=== PATIENT | female | born 1945 | race African-American/Black ===

== ENCOUNTER 2023-12-26 15:34 | Emergency (ER) | payer OTHER, BC ==
--- OUTSIDE RECORDS SUMMARY | 2023-12-26 15:37 | XMS REPORT | Continuity of Care Document ---
Author Name Unknown Address [address] [facility] [address] [place] [address] [facility] thconnect Address [address] [facility] [address] [place] [address] Care Team Providers [facility] Department Supervisor Name Role Phone MONICABahmanNAVA Primary Care Physician Unavailab Ankur Mariano Attending Clinician Unavailable Chelsey Bose MD Attending Clinician CHELSEY BOSE Attending Clinician UnavailTAI Lowry Attending Clinician Unavailable Tai Schaefer MD Attending Clinician [phone] Ankur De La Cruz Admitting Clinician Unavailable TAI SCHAEFER Admitting Clinician Unavailable Payers Payer Name Policy Type Policy Number Effective Date Expirati on Date Source [facility] 6 [id number] [facility] 6 [id number] [facility] MEDICARE NOVITAS [id number] 2002 00:00:00 [facility] [id number] 2002 00:00:00 [facility] Problems Condition Name Condition Details Condition Category Status Onset Date Resolution Date Last Treatment Date Treating Clinician Comments Source Type II or unspecifie d type diabetes mellitus with neurologic al manifestat ions, not stated as uncontroll ed(250.60) 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 ICD10 Diagnosis Term [employer] [facility] HLD (hyperlipi demia) HLD (hyperlipi demia) Disease Active 07-01 00:00: 00 Overview: Formattin g of this note might be different from the original. ICD10 Diagnosis Term [employer] [facility] [id number] Stage 3 chronic kidney disease, unspecifie d whether stage 3a or 3b CKD Problem [facility] [id number] Primary osteoarthr itis of right knee Problem [facility] [id number] Essential hypertensi on Problem [facility] [id number] Primary insomnia Problem [facility] [id number] Non-season al allergic rhinitis, unspecifie d trigger Problem [facility] [id number] Obesity (BMI 30-39.9) Problem [facility] [id number] Mixed hyperlipid emia Problem [facility] [id number] Morbid (severe) obesity due to excess calories Problem [facility] [id number] Type 2 diabetes mellitus with hyperglyce carol, without long-term current use of insulin Problem [facility] [id number] Iron deficiency anemia, unspecifie d iron deficiency anemia type Problem [facility] [id number] Neuropathy of right lower extremity Problem [facility] [id number] Diabetic polyneurop athy associated with type 2 diabetes mellitus Problem [facility] [id number] GERD without esophagiti s Problem [facility] Allergies, Adverse Reactions, Alerts Allergy Name Allergy Type Status Severity Reaction(s) Onset Date Inactive Date Treating Clinician Comments Source Penicill ins Propensi ty to adverse reaction s Active Hives 07-01 00:00: 00 bruises [facility] PENICILL INS Drug Class Active Hives 07-01 00:00: [address] [facility] albutero l albutero l Active Unknown [facility] [id number] Drug allergy Active Unknown [facility] Social History Social Habit Start Date Stop Date Quantity Comments Source History of Tobacco Use [facility] Sex Assigned At [facility] Exposure to SARS-CoV-2 (event) 2021-08-31 00:00:00 2021-09-10 08:11:00 Not sure [facility] Alcohol intake 2021-09-10 00:00:00 2021-09-10 00:00:00 Current non-drinker of alcohol (finding) [facility] Tobacco use and exposure 2014-10-22 00:00:00 2014-10-22 00:00:00 Smokeless tobacco non-user [facility] Smoking Status Start Date Stop Date Source Never Smoker [facility] Medications Ordered Medication Name Filled Medication Name Start Date Stop Date Current Medication? Ordering Clinician Indication Dosage Frequency Signature (SIG) Comments Components Source Ozempic (2 MG/DOSE) 8 MG/3ML Ozempic (2 MG/DOSE) 8 MG/3ML 9-04 00:00: 00 No Ozempic (2 MG/DOSE) 8 MG/3ML Sushila Contour Test Strip Strip Sushila Contour Test Strip Strip 5-06 00:00: 00 No Sushila Contour Test Strip Strip BUPivacaine HCl BUPivacaine HCl 2022-02 2-19 00:00: 00 No 4mL [facility] Methocarbam ol 500 MG Methocarbam ol 500 MG 7-11 00:00: 00 No 1{table t} TID Methocarba mol 500 MG Bupivicaine Oil Trough Bupivicaine Oil Trough 03-15 00:00: 00 No 2.5mg [facility] Kenalog (Triamcinol one) Kenalog (Triamcinol one) 03-15 00:00: 00 No 40mg [facility] diclofenac 75 mg EC tablet 09-13 00:00: 00 Yes 75mg Take 1 tablet by mouth in the morning and 1 tablet in the evening. Take with meals. [facility] diclofenac 75 mg EC tablet 09-10 00:00: 00 Yes [id number] 9100 75mg Take 1 tablet by mouth in the morning and 1 tablet in the evening. Take with meals. [facility] ibuprofen 600 mg tablet 09-05 00:00: 00 Yes [id number] 9100 600mg Take 1 tablet by mouth every 6 (six) hours as needed for Pain (scale 4-6). [facility] HYDROcodone -acetaminop hen (NORCO) 7.5-325 mg per tablet 09-05 00:00: 00 09-13 04:59 :00 No [id number] 1{tbl} Take 1 tablet by mouth every 8 (eight) hours as needed for Pain for up to 7 days. Indication s: acute pain [facility] diclofenac (VOLTAREN) 75 mg EC tablet 07-27 00:00: 00 Yes TAKE 1 TABLET BY MOUTH 2 (TWO) TIMES DAILY WITH MEALS FOR 30 DAYS. [facility]y [facility] CARVEDILOL 6.25 MG ORAL TAB 06-22 16:08: 07 Yes 2 twice daily [facility] ASPIRIN 81 MG ORAL TAB 06-22 16:08: 07 Yes 1 daily [facility] CENTRUM ORAL 06-22 16:08: 07 Yes 1 daily [facility] carvedilol (COREG) 25 mg tablet 06-22 16:08: 07 Yes 25mg Take 25 mg by mouth 2 (two) times daily. [facility] ALBIGLUTIDE (TANZEUM SC) 06-22 16:08: 07 Yes inject under the skin. [facility] SIMVASTATIN 80 MG ORAL TAB 06-22 16:06: 20 Yes 1 daily [facility] KLOR-CON 10 10 MEQ ORAL TBSR 06-22 16:06: 20 Yes 1 daily [facility] XOPENEX HFA INHALE 06-22 16:06: 20 Yes 2 puffs daily PRN [facility] NEURONTIN 800 MG ORAL TAB 06-22 16:06: 20 Yes 1 Daily [facility] metFORMIN (GLUCOPHAGE ) 1,000 mg tablet 06-22 16:06: 20 Yes 1000mg Take 1,000 mg by mouth 2 (two) times daily. [facility] losartan (COZAAR) 100 mg tablet 06-22 16:06: 20 Yes 100mg Take 100 mg by mouth daily. [facility] ferrous sulfate (IRON, FERROUS SULFATE,) 325 mg (65 mg iron) tablet 06-22 16:06: 20 Yes 325mg Take 325 mg by mouth daily. [facility] glipiZIDE (GLUCOTROL) 5 mg tablet 05-03 00:00: 00 Yes 5mg Take 5 mg by mouth daily. [facility] DIOVAN 320 MG ORAL TAB 11-13 09:23: 44 Yes 1 daily [facility] blood sugar diagnostic (ONE TOUCH ULTRA TEST) strip 08-07 00:00: 00 Yes before meals. [facility] BD INSULIN PEN NEEDLE UF MINI 31 X 3/16 INCH MISC NDLE 11-04 00:00: 00 Yes use twice daily with byetta pen [facility] Furosemide 20 MG Furosemide 20 MG No 1{table t} QD Furosemide 20 MG Ozempic (1 MG/DOSE) 4 MG/3ML Ozempic (1 MG/DOSE) 4 MG/3ML No Ozempic (1 MG/DOSE) 4 MG/3ML Simvastatin 40 MG Simvastatin 40 MG No 1{table t_in_th e_eveni ng} QD Simvastati n 40 MG Cetirizine HCl 10 MG Cetirizine HCl 10 MG No 1{table t} QD Cetirizine HCl 10 MG Carvedilol 25 MG Carvedilol 25 MG No 1{table t_with_ food} BID Carvedilol 25 MG traZODone HCl 100 MG traZODone HCl 100 MG No 1{table t_at_be dtime_a s_neede d} QD traZODone HCl 100 MG glipiZIDE 10 MG glipiZIDE 10 MG No glipiZIDE 10 MG Famotidine 20 MG Famotidine 20 MG No 1{table t_at_be dtime_a s_neede d} QD Famotidine 20 MG Losartan Potassium 100 MG Losartan Potassium 100 MG No 1{table t} QD Losartan Potassium 100 MG Gabapentin 300 MG Gabapentin 300 MG No 1{capsu le} TID Gabapentin 300 MG Pantoprazol e Sodium 40 MG Pantoprazol e Sodium 40 MG No 1{table t} QD Pantoprazo le Sodium 40 MG Ventolin HFA 108 (90 Base) MCG/ACT Ventolin HFA 108 (90 Base) MCG/ACT No 1{puff_ as_need ed} 6xD Ventolin HFA 108 (90 Base) MCG/ACT amLODIPine Besylate 2.5 MG amLODIPine Besylate 2.5 MG No 1{table t} QD amLODIPine Besylate 2.5 MG Potassium 99 MG Potassium 99 MG No 1{table t} QD Potassium 99 MG Aspirin Adult Low Strength 81 MG Aspirin Adult Low Strength 81 MG No 1{table t} QD Aspirin Adult Low Strength 81 MG Naproxen 500 MG Naproxen 500 MG No BID Naproxen 500 MG Iron (Ferrous Sulfate) 325 (65 Fe) MG Iron (Ferrous Sulfate) 325 (65 Fe) MG No 1{table t} Iron (Ferrous Sulfate) 325 (65 Fe) MG Immunizations Ordered Immunization Name Filled Immunization Name Date Status Comments Source Pneumovax (PPSV23) Pneumovax (PPSV23) 2021-09-29 10:40:00 Completed [facility] Pneumovax (PPSV23) Pneumovax (PPSV23) 2021-09-29 10:40:00 Completed [facility] Pneumovax (PPSV23) Pneumovax (PPSV23) 2021-09-29 10:40:00 Completed [facility] Pneumovax (PPSV23) Pneumovax (PPSV23) 2021-09-29 10:40:00 Completed [facility] Pneumovax (PPSV23) Pneumovax (PPSV23) 2021-09-29 10:40:00 Completed [facility] Pneumovax (PPSV23) Pneumovax (PPSV23) 2021-09-29 10:40:00 Completed [facility] FluAD FluAD 2020-11-26 16:17:00 Completed [facility] FluAD FluAD 2020-11-26 16:17:00 Completed [facility] FluAD FluAD 2020-11-26 16:17:00 Completed [facility] FluAD FluAD 2020-11-26 16:17:00 Completed [facility] FluAD FluAD 2020-11-26 16:17:00 Completed [facility] FluAD FluAD 2020-11-26 16:17:00 Completed [facility] FluAD FluAD 2020-11-26 16:17:00 Completed [facility] FluAD FluAD Unknown Completed [facility] Pneumovax (PPSV23) Pneumovax (PPSV23) Unknown Completed [facility] FluAD FluAD Unknown Completed [facility] Pneumovax (PPSV23) Pneumovax (PPSV23) Unknown Completed [facility] FluAD FluAD Unknown Completed [facility] Pneumovax (PPSV23) Pneumovax (PPSV23) Unknown Completed [facility] FluAD FluAD Unknown Completed [facility] Pneumovax (PPSV23) Pneumovax (PPSV23) Unknown Completed [facility] FluAD FluAD Unknown Completed [facility] Pneumovax (PPSV23) Pneumovax (PPSV23) Unknown Completed [facility] FluAD FluAD Unknown Completed [facility] Pneumovax (PPSV23) Pneumovax (PPSV23) Unknown Completed [facility] FluAD FluAD Unknown Completed [facility] Pneumovax (PPSV23) Pneumovax (PPSV23) Unknown Completed [facility] Shingrix Shingrix Unknown Completed [facility] Flu Vaccine for Medicare Flu Vaccine for Medicare Unknown Completed [facility] FluAD FluAD Unknown Completed [facility] Pneumovax (PPSV23) Pneumovax (PPSV23) Unknown Completed [facility] FluAD FluAD Unknown Completed [facility] Pneumovax (PPSV23) Pneumovax (PPSV23) Unknown Completed [facility] FluAD FluAD Unknown Completed [facility] Pneumovax (PPSV23) Pneumovax (PPSV23) Unknown Completed [facility] FluAD FluAD Unknown Completed [facility] Pneumovax (PPSV23) Pneumovax (PPSV23) Unknown Completed [facility] FluAD FluAD Unknown Completed [facility] Pneumovax (PPSV23) Pneumovax (PPSV23) Unknown Completed [facility] FluAD FluAD Unknown Completed [facility] Pneumovax (PPSV23) Pneumovax (PPSV23) Unknown Completed [facility] FluAD FluAD Unknown Completed [facility] Pneumovax (PPSV23) Pneumovax (PPSV23) Unknown Completed [facility] FluAD FluAD Unknown Completed [facility] Pneumovax (PPSV23) Pneumovax (PPSV23) Unknown Completed [facility] FluAD FluAD Unknown Completed [facility] Pneumovax (PPSV23) Pneumovax (PPSV23) Unknown Completed [facility] FluAD FluAD Unknown Completed [facility] Pneumovax (PPSV23) Pneumovax (PPSV23) Unknown Completed [facility] FluAD FluAD Unknown Completed [facility] Pneumovax (PPSV23) Pneumovax (PPSV23) Unknown Completed [facility] FluAD FluAD Unknown Completed [facility] Pneumovax (PPSV23) Pneumovax (PPSV23) Unknown Completed [facility] FluAD FluAD Unknown Completed [facility] Pneumovax (PPSV23) Pneumovax (PPSV23) Unknown Completed [facility] Vital Signs Vital Name Observation Time Observation Value Comments S ource height 2023-11-01 15:20:00 64 [in_i] Commo n [facility] temperature 2023-11-01 15:20:00 95.6 [degF] Com mon [facility] oximetry 2023-11-01 15:20:00 97 % Commo n [facility] blood pressure systolic 2023-11-01 15:20:00 122 mm[Hg] [facility] blood pressure diastolic 2023-11-01 15:20:00 68 mm[Hg] [facility] height 2023-11-01 15:20:00 64 [in_i] Commo n [facility] bmi 2023-11-01 15:20:00 35.36 kg/m2 Comm on [facility] oximetry 2023-11-01 15:20:00 97 % [facility] n [facility] blood pressure systolic 2023-11-01 15:20:00 122 mm[Hg] [facility] blood pressure diastolic 2023-11-01 15:20:00 68 mm[Hg] [facility] height 2023-07-31 15:20:00 64 [in_i] Commo n [facility] weight 2023-07-31 15:20:00 206.4 [lb_av] Co on [facility] temperature 2023-07-31 15:20:00 97.6 [degF] Com [facility] bmi 2023-07-31 15:20:00 35.42 kg/m2 Comm on [facility] oximetry 2023-07-31 15:20:00 98 % Commo n [facility] blood pressure systolic 2023-07-31 15:20:00 128 mm[Hg] [facility] blood pressure diastolic 2023-07-31 15:20:00 70 mm[Hg] Common [facility] height 2023-05-10 09:10:00 64 [in_i] Commo n [facility] weight 2023-05-10 09:10:00 206.0 [lb_av] Co on [facility] temperature 2023-05-10 09:10:00 97.8 [degF] Com [facility] bmi 2023-05-10 09:10:00 35.36 kg/m2 Comm on [facility] oximetry 2023-05-10 09:10:00 99 % Commo n [facility] respiratory rate 2023-05-10 09:10:00 18 /min Common [facility] blood pressure systolic 2023-05-10 09:10:00 136 mm[Hg] [facility] blood pressure diastolic 2023-05-10 09:10:00 71 mm[Hg] Common [facility] height 2023-02-14 10:15:00 64 [in_i] Commo n [facility] weight 2023-02-14 10:15:00 210 [lb_av] Comm on [facility] temperature 2023-02-14 10:15:00 97.9 [degF] Com [facility] bmi 2023-02-14 10:15:00 36.04 kg/m2 Comm on [facility] blood pressure systolic 2023-02-14 10:15:00 128 mm[Hg] Common [facility] blood pressure diastolic 2023-02-14 10:15:00 84 mm[Hg] Common [facility] height 2022-12-28 15:10:00 64 [in_i] Commo n [facility] weight 2022-12-28 15:10:00 205 [lb_av] Comm on [facility] bmi 2022-12-28 15:10:00 35.18 kg/m2 Comm on [facility] blood pressure systolic 2022-12-28 15:10:00 132 mm[Hg] Common [facility] blood pressure diastolic 2022-12-28 15:10:00 78 mm[Hg] Common [facility] height 2022-09-28 14:20:00 64 [in_i] Commo n [facility] weight 2022-09-28 14:20:00 219.0 [lb_av] Co mmon [facility] temperature 2022-09-28 14:20:00 97.6 [degF] Com mon [facility] bmi 2022-09-28 14:20:00 37.59 kg/m2 Comm on [facility] oximetry 2022-09-28 14:20:00 98 % Commo n [facility] respiratory rate 2022-09-28 14:20:00 18 /min Common [facility] blood pressure systolic 2022-09-28 14:20:00 138 mm[Hg] [facility] blood pressure diastolic 2022-09-28 14:20:00 75 mm[Hg] [facility] height 2022-09-28 14:20:00 64 [in_i] Commo n [facility] weight 2022-09-28 14:20:00 219.0 [lb_av] Co mmon [facility] temperature 2022-09-28 14:20:00 97.6 [degF] Com mon [facility] bmi 2022-09-28 14:20:00 37.59 kg/m2 Comm on [facility] oximetry 2022-09-28 14:20:00 98 % Commo n [facility] respiratory rate 2022-09-28 14:20:00 18 /min Common [facility] blood pressure systolic 2022-09-28 14:20:00 138 mm[Hg] [facility] blood pressure diastolic 2022-09-28 14:20:00 75 mm[Hg] Common [facility] height 2022-09-06 13:45:00 64 [in_i] Commo n [facility] weight 2022-09-06 13:45:00 216 [lb_av] Comm on [facility] temperature 2022-09-06 13:45:00 98.0 [degF] Com [facility] bmi 2022-09-06 13:45:00 37.07 kg/m2 Comm on [facility] blood pressure systolic 2022-09-06 13:45:00 134 mm[Hg] Common [facility] blood pressure diastolic 2022-09-06 13:45:00 86 mm[Hg] [facility] height 2022-07-28 13:30:00 64 [in_i] Commo n [facility] weight 2022-07-28 13:30:00 216.6 [lb_av] Co on [facility] bmi 2022-07-28 13:30:00 37.18 kg/m2 Comm on [facility] blood pressure systolic 2022-07-28 13:30:00 129 mm[Hg] [facility] blood pressure diastolic 2022-07-28 13:30:00 64 mm[Hg] [facility] height 2022-06-07 16:40:00 64 [in_i] Commo n [facility] weight 2022-06-07 16:40:00 214 [lb_av] Comm on [facility] temperature 2022-06-07 16:40:00 98 [degF] Comm on [facility] bmi 2022-06-07 16:40:00 36.73 kg/m2 Comm on [facility] blood pressure systolic 2022-06-07 16:40:00 124 mm[Hg] Common [facility] blood pressure diastolic 2022-06-07 16:40:00 70 mm[Hg] Common [facility] height 2022-03-15 15:00:00 64 [in_i] Commo n [facility] weight 2022-03-15 15:00:00 215 [lb_av] Comm on [facility] temperature 2022-03-15 15:00:00 97.2 [degF] Com [facility] bmi 2022-03-15 15:00:00 36.9 kg/m2 Commo n [facility] blood pressure systolic 2022-03-15 15:00:00 126 mm[Hg] [facility] blood pressure diastolic 2022-03-15 15:00:00 76 mm[Hg] [facility] height 2022-01-31 14:50:00 64 [in_i] Commo n [facility] weight 2022-01-31 14:50:00 219.7 [lb_av] Co mmon [facility] temperature 2022-01-31 14:50:00 97.3 [degF] Com mon [facility] bmi 2022-01-31 14:50:00 37.71 kg/m2 Comm on [facility] oximetry 2022-01-31 14:50:00 98 % Commo n [facility] respiratory rate 2022-01-31 14:50:00 18 /min Common [facility] blood pressure systolic 2022-01-31 14:50:00 136 mm[Hg] [facility] blood pressure diastolic 2022-01-31 14:50:00 62 mm[Hg] Common [facility] height 2021-11-16 10:40:00 64 [in_i] Commo n [facility] weight 2021-11-16 10:40:00 223.8 [lb_av] Co [facility] bmi 2021-11-16 10:40:00 38.41 kg/m2 Comm on [facility] height 2021-09-29 09:50:00 64 [in_i] Commo n [facility] weight 2021-09-29 09:50:00 223.8 [lb_av] Co [facility] temperature 2021-09-29 09:50:00 97.6 [degF] Com [facility] bmi 2021-09-29 09:50:00 38.41 kg/m2 Comm on [facility] oximetry 2021-09-29 09:50:00 99 % Commo n [facility] respiratory rate 2021-09-29 09:50:00 18 /min Common [facility] blood pressure systolic 2021-09-29 09:50:00 138 mm[Hg] [facility] blood pressure diastolic 2021-09-29 09:50:00 74 mm[Hg] Common [facility] height 2021-09-29 10:00:00 64 [in_i] Commo n [facility] weight 2021-09-29 10:00:00 223.8 [lb_av] Co [facility] temperature 2021-09-29 10:00:00 97.6 [degF] Com [facility] bmi 2021-09-29 10:00:00 38.41 kg/m2 Comm on [facility] oximetry 2021-09-29 10:00:00 99 % Commo n [facility] respiratory rate 2021-09-29 10:00:00 18 /min [facility] blood pressure systolic 2021-09-29 10:00:00 138 mm[Hg] [facility] blood pressure diastolic 2021-09-29 10:00:00 74 mm[Hg] [facility] Systolic blood pressure 2021-09-10 13:15:00 136 mm[Hg] [facility] Diastolic blood pressure 2021-09-10 13:15:00 62 mm[Hg] [facility] Heart rate 2021-09-10 13:15:00 81 /min [facility] Body height 2021-09-10 13:15:00 162.6 cm [facility] Body weight 2021-09-10 13:15:00 97.523 kg [facility] BMI 2021-09-10 13:15:00 36.90 kg/m2 [facility] height 2021-05-17 16:20:00 64 [in_i] Commo n [facility] weight 2021-05-17 16:20:00 214.4 [lb_av] Co mmon [facility] temperature 2021-05-17 16:20:00 97.5 [degF] Com mon [facility] bmi 2021-05-17 16:20:00 36.8 kg/m2 Commo n [facility] oximetry 2021-05-17 16:20:00 100 % Commo n [facility] respiratory rate 2021-05-17 16:20:00 18 /min [facility] blood pressure systolic 2021-05-17 16:20:00 136 mm[Hg] [facility] blood pressure diastolic 2021-05-17 16:20:00 72 mm[Hg] [facility] height 2021-02-15 16:30:00 64 [in_i] Commo n [facility] weight 2021-02-15 16:30:00 217.2 [lb_av] Co mmon [facility] temperature 2021-02-15 16:30:00 97.3 [degF] Com mon [facility] bmi 2021-02-15 16:30:00 37.28 kg/m2 Comm on [facility] oximetry 2021-02-15 16:30:00 100 % Commo n [facility] respiratory rate 2021-02-15 16:30:00 18 /min Common [facility] blood pressure systolic 2021-02-15 16:30:00 134 mm[Hg] Common [facility] blood pressure diastolic 2021-02-15 16:30:00 70 mm[Hg] Common [facility] temperature 2020-11-19 15:50:00 98.7 [degF] Com mon [facility] bmi 2020-11-19 15:50:00 38.10 kg/m2 Comm on [facility] blood pressure systolic 2020-11-19 15:50:00 131 mm[Hg] Common [facility] blood pressure diastolic 2020-11-19 15:50:00 75 mm[Hg] Common [facility] height 2020-11-19 15:50:00 64 [in_i] Commo n [facility] weight 2020-11-19 15:50:00 222 [lb_av] Comm on [facility] Encounters Start Date/Time End Date/Time Encounter Type Admission Type Attending Clinicians Care Facility Care Department Encounter ID Source 2023-05-08 14:38[facility]00 [facility] [id number] [facility] 2023-02-14 14:59:00 [facility] [id number] [facility] 2022-09-28 14:17:00 Outpatient De La Cruz, Ankur [facility] [id number] [facility] 2022-09-27 08:21:00 Outpatient De La Cruz, Ankur [facility] [id number] [facility] 2022-06-03 10:37:00 Outpatient De La Cruz, Ankur [facility] [id number] [facility] 2022-03-15 15:32:01 Outpatient De La Cruz, Ankur [facility] [id number] [facility] 2022-02-03 13:51:01 Outpatient De La Cruz, Ankur STLC STLML[facility] [id number] [facility] 2022-01-27 13:41:00 Outpatient De La Cruz, Ankur STLC STL[facility] [id number] [facility] 2021-11-16 10:10:01 Outpatient De La Cruz, Ankur STLC [facility] [id number] [facility] 2021-03-24 14:26:23 Outpatient De La Cruz, Ankur [facility]C [facility] [id number] [facility] 2021-03-24 13:48:35 Outpatient De La Cruz, Ankur STLC STL[facility] [id number] [facility] 2021-03-24 13:43:52 Outpatient De La Cruz, Ankur [facility] ST[facility] [id number] [facility] 2021-03-24 13:16:01 Outpatient De La Cruz, Ankur STLMLC ST[facility] [id number] [facility] 2021-03-24 12:38:02 Outpatient De La Cruz, Ankur [facility]C ST[facility] [id number] [facility] 2023-11-01 00:00:00 2023-11-01 00:00:00 OFFICE VISIT ESTAB PT LEVEL 4 [facility] ST[facility] [id number] [facility] 2023-11-01 00:00:00 2023-11-01 00:00:00 (TEL) STLMLC STL[facility]C [id number] [facility] 2023-11-01 00:00:00 2023-11-01 00:00:00 SUB ANNUAL [facility] STL[facility] STL[facility]C [id number] [facility] 2023-11-01 00:00:00 2023-11-01 00:00:00 (TEL) STLMLC STLMLC [id number] [facility] 2023-09-18 00:00:00 2023-09-18 00:00:00 (TEL) STLMLC STL[facility]C [id number] [facility] 2023-07-31 00:00:00 2023-07-31 00:00:00 OFFICE VISIT ESTAB PT LEVEL 4 [facility]C STL[facility]C [id number] [facility] 2023-07-03 00:00:00 2023-07-03 00:00:00 (TEL) STLMLC STL[facility]C [id number] [facility] 2023-06-30 00:00:00 2023-06-30 00:00:00 (TEL) STLMLC STLMLC [id number] [facility] 2023-05-24 00:00:00 2023-05-24 00:00:00 (TEL) STLMLC STLMLC [id number] [facility] 2023-05-23 00:00:00 2023-05-23 00:00:00 (TEL) STLMLC STLMLC [id number] [facility] 2023-05-10 00:00:00 2023-05-10 00:00:00 OFFICE VISIT ESTAB PT LEVEL 4 [facility]LMLC STL[facility]C [id number] [facility] 2023-02-14 00:00:00 2023-02-14 00:00:00 OFFICE VISIT ESTAB PT LEVEL 4 [facility]LMLC STL[facility]C [id number] [facility] 2023-01-18 00:00:00 2023-01-18 00:00:00 (TEL) STLMLC STLMLC [id number] [facility] 2022-12-30 00:00:00 2022-12-30 00:00:00 (TEL) STLMLC STLMLC [id number] [facility] 2022-12-28 00:00:00 2022-12-28 00:00:00 OFFICE VISIT ESTAB PT LEVEL 4 [facility]C STL[facility]C [id number] [facility] 2022-09-28 00:00:00 2022-09-28 00:00:00 OFFICE VISIT ESTAB PT LEVEL 4 [facility]C STL[facility]C [id number] [facility] 2022-09-28 00:00:00 2022-09-28 00:00:00 SUB ANNUAL [facility] STL[facility]C [id number] [facility] 2022-09-28 00:00:00 2022-09-28 00:00:00 (TEL) STLMLC STLMLC [id number] [facility] 2022-09-06 00:00:00 2022-09-06 00:00:00 (TEL) STLMLC STLMLC [id number] [facility] 2022-09-06 00:00:00 2022-09-06 00:00:00 OFFICE VISIT ESTAB PT LEVEL 4 [facility]LMLC STL[facility]C [id number] [facility] 2022-09-01 00:00:00 2022-09-01 00:00:00 (TEL) STLMLC STLMLC [id number] [facility] 2022-08-09 00:00:00 2022-08-09 00:00:00 (TEL) STLMLC STLMLC [id number] [facility] 2022-07-28 00:00:00 2022-07-28 00:00:00 OFFICE VISIT ESTAB PT LEVEL 4 STLMLC STLMLC [id number] [facility] 2022-07-28 00:00:00 2022-07-28 00:00:00 (TEL) STLMLC STLMLC [id number] [facility] 2022-06-07 00:00:00 2022-06-07 00:00:00 OFFICE VISIT ESTAB PT LEVEL 4 STLMLC STLMLC [id number] [facility] 2022-03-15 00:00:00 2022-03-15 00:00:00 OFFICE VISIT NEW PT LEVEL 4 STLMLC STLMLC [id number] [facility] 2022-01-31 00:00:00 2022-01-31 00:00:00 OFFICE VISIT ESTAB PT LEVEL 4 STLMLC STLMLC [id number] [facility] 2022-01-31 00:00:00 2022-01-31 00:00:00 (TEL) STLMLC STLMLC [id number] [facility] 2021-11-16 00:00:00 2021-11-16 00:00:00 OFFICE VISIT ESTAB PT LEVEL 3 [facility]LMLC STLMLC [id number] [facility] 2021-11-15 00:00:00 2021-11-15 00:00:00 (TEL) STLMLC STLMLC [id number] [facility] 2021-10-01 00:00:00 2021-10-01 00:00:00 (TEL) STLMLC STLMLC [id number] [facility] 2021-09-29 00:00:00 2021-09-29 00:00:00 OFFICE VISIT ESTAB PT LEVEL 4 [facility]LMLC STLMLC [id number] [facility] 2021-09-29 00:00:00 2021-09-29 00:00:00 SUB ANNUAL [facility] STL[facility] STL[facility]C [id number] [facility] 2021-09-13 00:00:00 2021-09-13 00:00:00 Telephone Chelsey Bose [facility] [id number] [facility] 2021-09-10 08:00:00 2021-09-10 08:40:59 Outpatient R [facility]SEY BOSE [facility] [id number] [facility] 2021-09-10 08:00:00 2021-09-10 08:40:59 Office Visit Chelsey Bose [facility] [id number] [facility] 2021-09-06 00:00:00 2021-09-06 00:00:00 (TEL) STLMLC STLMLC [id number] [facility] 2021-09-05 19:31:00 2021-09-05 21:15:00 Emergency X TAI SCHAEFER [facility] ERT [id number] [facility] 2021-09-05 19:31:00 2021-09-05 21:15:00 Emergency X TAI SCHAEFER [facility] ERT [id number] [facility] 2021-09-05 19:31:00 2021-09-05 21:15:00 Emergency Tai Schaefer [facility] [id number] [facility] 2021-07-30 00:00:00 2021-07-30 00:00:00 (TEL) STLMLC STL[facility]C [id number] [facility] 2021-07-28 00:00:00 2021-07-28 00:00:00 (TEL) STLMLC STLMLC [id number] [facility] 2021-05-17 00:00:00 2021-05-17 00:00:00 OFFICE VISIT ESTAB PT LEVEL 4 [facility]LMLC STL[facility]C [id number] [facility] 2021-02-15 00:00:00 2021-02-15 00:00:00 OFFICE VISIT ESTAB PT LEVEL 4 STLMLC STLMLC [id number] [facility] 2020-11-19 00:00:00 2020-11-19 00:00:00 OFFICE VISIT ESTAB PT LEVEL 4 [facility]LMLC STLMLC [id number] [facility] 2020-10-22 00:00:00 2020-10-22 00:00:00 (TEL) STLMLC STLMLC [id number] [facility] 2020-08-14 00:00:00 2020-08-14 00:00:00 Outpatient STLMLC STL[facility]C [id number] [facility] 2020-08-14 00:00:00 2020-08-14 00:00:00 Outpatient STLMLC STLMLC [id number] [facility] 2020-08-14 00:00:00 2020-08-14 00:00:00 Outpatient STLMLC STLMLC [id number] [facility] 2020-06-11 00:00:00 2020-06-11 00:00:00 Outpatient STLMLC STL[facility]C [id number] [facility] 2020-05-05 00:00:00 2020-05-05 00:00:00 Outpatient STLMLC STLMLC [id number] [facility] 2019-07-03 15:27:00 2019-07-03 23:59:00 Hospital Encounter Chelsey Bose [facility] [id number] [facility] 2019-07-03 15:45:00 2019-07-03 15:45:00 Outpatient R [facility] [id number] [facility] 2019-07-03 15:18:42 2019-07-03 15:38:50 Office Visit hCelsey Bose [facility] [place] [id number] [facility] 2019-07-03 15:18:42 2019-07-03 15:38:50 Office Visit Chelsey Bose [facility] [place] [id number] 2019-03-20 16:10:00 2019-03-20 23:59:00 Hospital Encounter Chelsey Bose [facility] [place] [id number] [facility] 2019-03-20 16:01:36 2019-03-20 16:24:52 Office Visit Chelsey Bose [facility] [place] [id number] [facility] Results Test Description Test Time Test Comments Results Result Co mments Source Lumbar Spine 3 Views Lumbar Spine 3 Views
--- NOTE | 2023-12-26 16:09 | RAD REPORT ---
EXAMINATION: UPPER EXTREMITY VENOUS UNILATE CLINICAL INDICATION: Female, 78 years old. [facility] MAIN PAIN Bed Name: IW1 TECHNIQUE: Complete venous duplex sonography of the left upper extremity was performed. The examinati on included compression for vein patency, color Doppler imaging and flow augmentation in response to distal compression of the internal jugular, brachiocephalic, subclavian, axillary, brachial, radia l, ulnar, cephalic and basilic veins. COMPARISON: No prior exam. FINDINGS: Duplex sonography testing of the veins of the left upper extremity is completed. Color flow imaging s hows all veins to be compressible with appropriate color filling. Pulsatile and phasic flow is present within the upper extremity deep and superficial veins examined. IMPRESSION: There is no deep vein or superficial vein thrombosis.
--- NOTE | 2023-12-26 17:29 | RAD REPORT ---
EXAMINATION: XR LEFT HUMERUS HISTORY: PAIN TECHNIQUE: Multiple radiographic views of the left humerus were obtained. COMPARISON: None FINDINGS: No bone or joint abnormality detected. Soft tissue mineralization around the head of the hu merus, which may relate to sequelae of calcific tendinitis. Moderate AC joint degenerative changes.
--- NOTE | 2023-12-26 17:35 | RAD REPORT ---
EXAMINATION: XR FOREARM CLINICAL INDICATION: Female, 78 years old. [facility] MAIN PAIN Bed Name: [facility] TECHNIQUE: 2 view radiograph of the left forearm were obtained. . COMPARISON: No prior exam. FINDINGS: No evidence of fracture or dislocation. Normal alignment. No evidence of arthropathy or oth er focal bone lesion. Calcific densities along the dorsal aspect of the proximal forearm, with mild swelling. IMPRESSION: Calcific densities along the dorsal aspect of the proximal forearm, could relate to sequelae of prior trauma.
--- NOTE | 2023-12-26 17:37 | EDPHYS ---
Physician Documentation [facility] Name: Crys Munoz Age: 78 yrs Sex: Female : 1945 Arrival Date: 12/26/2023 Time: 15:34 Bed 5 Private MD: ED Physician Elyssa De La Cruz HPI: 12/25 15:42 This 78 yrs old Black Female presents to ER via Unassigned with complaints of Arm Pain kb - left. 15:42 Pt is a 78 year old female who presents for left arm pain that started 6 days ago. kb States she fell onto left side on 10/05/23 and had negative xrays at the time. states she had her last checkup 6 days ago and her arm has been hurting ever since. . Historical: - Allergies: 15:46 No Known Allergies; jb4 - PMHx: 15:46 Diabetes mellitus; Asthma; jb4 - PSHx: 15:46 Partial hysterectomy; jb4 - Immunization history:: Adult Immunizations up to date. - Infectious Disease History:: Denies. - Social history:: Smoking status: Patient denies any tobacco usage or history of. ROS: 15:45 Constitutional: As per HPI kb Exam: 15:45 Constitutional: This is a well developed, well nourished patient who is awake, alert, kb and in no acute distress. Head/Face: Normocephalic, atraumatic. ENT: Moist Mucous membranes Cardiovascular: Regular rate Respiratory: Respirations even and unlabored. No increased work of breathing. Talking in full sentences Skin: Warm, dry with normal turgor. Normal color. Neuro: Awake and alert, GCS 15, oriented to person, place, time, and situation. 15:45 Musculoskeletal/extremity: Extremities: grossly normal except: noted in the left arm: pain, swelling, tenderness, ROM: intact in all extremities, Circulation is intact in all extremities. Sensation intact. Vital Signs: 15:44 BP 136 / 73; Pulse 67; Resp 16; Temp 98.3(O); Pulse Ox 100% on R/A; Weight 91.63 kg jb4 (R); Height 5 ft. 4 in. (R); Pain 10/10; 17:54 Pulse 62; Resp 18; Pulse Ox 100% on R/A; mb9 15:44 Body Mass Index 34.67 (91.63 kg, 162.56 cm) jb4 15:44 Pain Scale: Adult jb4 MDM: 15:40 Medical Screening Exam initiated kb 15:46 Differential diagnosis: contusion, dvt, fracture, sprain. Data reviewed: vital signs, kb nurses notes. 17:36 Counseling: I had a detailed discussion with the patient and/or guardian regarding the kb historical points, exam findings, and any diagnostic results supporting the discharge/admit diagnosis, radiology results, the need for outpatient follow up, a family practitioner, to return to the emergency department if symptoms worsen or persist or if there are any questions or concerns that arise at home. 12/25 15:44 Order name: US Extremity Venous Unilateral Ltd kb 12/25 15:45 Order name: Humerus Left XRAY; Complete Time: 17:32 kb 12/25 15:45 Order name: Forearm Left XRAY; Complete Time: 17:36 kb 12/25 15:47 Order name: UPPER EXTREMITY VENOUS UNILATE; Complete Time: 16:12 EDMS Administered Medications: No medications were administered Disposition Summary: 12/26/23 17:37 Discharge Ordered Notes: Location: Home kb Condition: Stable kb Diagnosis - Pain in left arm kb Followup: kb - With: Emergency Department - When: As needed - Reason: Worsening of condition Followup: kb - With: Private Physician - When: 2 - 3 days - Reason: Recheck today's complaints, Continuance of care, Re-evaluation by your physician Discharge Instructions: - Discharge Summary Sheet kb - Musculoskeletal Pain kb Forms: - Medication Reconciliation Form kb - Antibiotic Education kb - Prescription Opioid Use kb - Patient Portal Instructions kb - Leadership Thank You Letter kb Signatures: Dispatcher [employer] Radha Obregon, BENITO-Armando MENGP-Chano Lozada, RN RN jb4
--- NOTE | 2023-12-26 17:37 | ER ---
Nurse's Notes [facility] Name: Crys Munoz Age: 78 yrs Sex: Female : 1945 Arrival Date: 12/26/2023 Time: 15:34 Bed 5 Private MD: Diagnosis: Pain in left arm Presentation: 12/25 15:44 Chief complaint: Patient states: I am having left arm pain since my last check up. I jb4 fell October 04. The pain is in my left upper arm to my left elbow. Coronavirus screen: At this time, the client does not indicate any symptoms associated with coronavirus-19. Ebola Screen: No symptoms or risks identified at this time. Initial Sepsis Screen: Does the patient meet any 2 criteria? No. Patient's initial sepsis screen is negative. Does the patient have a suspected source of infection? No. Patient's initial sepsis screen is negative. Risk Assessment: Do you want to hurt yourself or someone else? Patient reports no desire to harm self or others. Onset of symptoms was December 22, 2023. Transition of care: patient was not received from another setting of care. 15:44 Method Of Arrival: Ambulatory jb4 15:44 Acuity: MONTSE 3 jb4 Triage Assessment: 15:46 General: Appears in no apparent distress. comfortable, Behavior is calm, cooperative, jb4 appropriate for age. Pain: Complains of pain in left tricep Pain radiates to palmar aspect of left forearm Pain currently is 10 out of 10 on a pain scale. Neuro: Level of Consciousness is awake, alert, obeys commands, Oriented to person, place, time, situation. Cardiovascular: Patient's skin is warm and dry. Respiratory: Airway is patent Respiratory effort is even, unlabored, Respiratory pattern is regular, symmetrical. Derm: Skin is intact, Skin is dry, Skin is normal, Skin temperature is warm. Musculoskeletal: Circulation, motion, and sensation intact. Range of motion: intact in all extremities. Historical: - Allergies: 15:46 No Known Allergies; jb4 - PMHx: 15:46 Diabetes mellitus; Asthma; jb4 - PSHx: 15:46 Partial hysterectomy; jb4 - Immunization history:: Adult Immunizations up to date. - Infectious Disease History:: Denies. - Social history:: Smoking status: Patient denies any tobacco usage or history of. Screenin:01 [facility] ED Fall Risk Assessment (Adult) History of falling in the last 3 months, mb9 including since admission No falls in past 3 months (0 pts) Confusion or Disorientation No (0 pts) Intoxicated or Sedated No (0 pts) Impaired Gait No (0 pts) Mobility Assist Device Used No (0 pt) Altered Elimination No (0 pt) Score/Fall Risk Level 0 - 2 = Low Risk Oriented to surroundings, Maintained a safe environment, Educated pt \T\ family on fall prevention, incl call for assistance when getting out of bed. Abuse screen: Denies threats or abuse. Nutritional screening: No deficits noted. Tuberculosis screening: No symptoms or risk factors identified. Assessment: 17:05 General: Appears in no apparent distress. Behavior is calm, cooperative. Pain: mb9 Complains of pain in left arm Pain currently is 5 out of 10 on a pain scale. Quality of pain is described as throbbing, Pain began gradually, Is intermittent, Aggravated by increased activity, repositioning. Neuro: Payan Agitation-Sedation Scale (RASS): 0 - Alert and Calm Level of Consciousness is awake, alert, obeys commands, Oriented to person, place, time, situation, Appropriate for age. Cardiovascular: Patient's skin is warm and dry. Respiratory: Airway is patent Respiratory effort is even, unlabored, Respiratory pattern is regular, symmetrical. GI: No signs and/or symptoms were reported involving the gastrointestinal system. : No signs and/or symptoms were reported regarding the genitourinary system. EENT: No signs and/or symptoms were reported regarding the EENT system. Derm: Skin is pink, warm \T\ dry. Musculoskeletal: Range of motion: intact in all extremities. Vital Signs: 15:44 BP 136 / 73; Pulse 67; Resp 16; Temp 98.3(O); Pulse Ox 100% on R/A; Weight 91.63 kg jb4 (R); Height 5 ft. 4 in. (R); Pain 10/10; 17:54 Pulse 62; Resp 18; Pulse Ox 100% on R/A; mb9 15:44 Body Mass Index 34.67 (91.63 kg, 162.56 cm) jb4 15:44 Pain Scale: Adult jb4 ED Course: 15:37 Patient arrived in ED. im 15:40 Radha Clarke FNP-C is PHCP. kb 15:40 Elyssa De La Cruz MD is Attending Physician. kb 15:46 Triage completed. jb4 15:46 Arm band placed on right wrist. jb4 16:05 UPPER EXTREMITY VENOUS UNILATE In Process Unspecified. EDMS 16:34 Humerus Left XRAY In Process Unspecified. EDMS 16:34 Forearm Left XRAY In Process Unspecified. EDMS 17:01 Bertha Boone, RN is Primary Nurse. mb9 17:01 Placed in gown. Bed in low position. Call light in reach. Side rails up X 1. Provided mb9 Education on: press call light if needing anything. Client placed on continuous cardiac and pulse oximetry monitoring. NIBP monitoring applied. 17:06 No provider procedures requiring assistance completed. mb9 17:54 Patient did not have IV access during this emergency room visit. mb9 Administered Medications: No medications were administered Medication: 17:02 VIS not applicable for this client. mb9 Outcome: 17:37 Discharge ordered by MD. kb 17:54 Discharged to home ambulatory, mb9 17:54 Condition: stable 17:54 Discharge instructions given to patient, Instructed on discharge instructions, follow up and referral plans. Demonstrated understanding of instructions, follow-up care, 17:54 Patient left the ED. mb9 Signatures: Dispatcher [employer] FITOMS Radha Clarke, JACQUIE OLIVER-Chano Lozada, RN RN jb4 Bertha Boone, RN RN mb9 Lidia Dave
[2023-12-26 18:09] VITALS: BP 136/73; TEMP 98.3; O2SAT 100
== END 2023-12-26 17:54 | disposition home or self-care (01) ==
LOC: ER 15:34
DX: M79.602 Pain in left arm (principal)
CPT/HCPCS: 93971

== ENCOUNTER 2024-05-23 14:36 | Emergency (ER) | payer OTHER, BC ==
--- OUTSIDE RECORDS SUMMARY | 2024-05-23 14:41 | XMS REPORT | Continuity of Care Document ---
Author Name Unknown Address [address] [facility] [address] [place] [address] [facility] [place] Address [address] [facility] [address] [place] [address] Care Team Providers Care Handyperson Name Role Phone MONICABahman NAVA Primary Care Physician Unavailab Ankur Mariano Attending Clinician Unavailable Chelsey Bose MD Attending Clinician [phone] CHELSEY BOSE Attending Clinician UnavailTAI Lowry Attending Clinician Unavailable Tai Schaefer MD Attending Clinician [phone] Ankur De La Cruz Admitting Clinician Unavailable TAI SCHAEFER Admitting Clinician Unavailable Payers Payer Name Policy Type Policy Number Effective Date Expirati on Date Source [facility] 6 [id number] [facility] 6 [id number] [facility] MEDICARE NOVITAS [id number] 2002 00:00:00 [id number] 2002 00:00:00 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 ICD10 Diagnosis Term Account Development Associate Utility [facility] HLD (hyperlipi demia) HLD (hyperlipi demia) Disease Active 07-01 00:00: 00 Overview: Formattin g of this note might be different from the original. ICD10 Diagnosis Term Account Development Associate Utility [facility] [id number] Stage 3 chronic kidney disease, unspecifie d whether stage 3a or 3b CKD Problem [facility] [id number] Primary osteoarthr itis of right knee Problem [facility] [id number] Essential hypertensi on Problem [facility] [id number] Primary insomnia Problem [facility] [id number] Non-season al allergic rhinitis, unspecifie d trigger Problem [facility] [id number] Obesity (BMI 30-39.9) Problem [facility] [id number] Mixed hyperlipid emia Problem [facility] [id number] Morbid (severe) obesity due to excess calories Problem [facility] [id number] Type 2 diabetes mellitus with hyperglyce carol, without long-term current use of insulin Problem [facility] [id number] Iron deficiency anemia, unspecifie d iron deficiency anemia type Problem [facility] [id number] Neuropathy of right lower extremity Problem [facility] [id number] Diabetic polyneurop athy associated with type [address] [facility] [id number] GERD without esophagiti s Problem [facility] Allergies, Adverse Reactions, Alerts Allergy Name Allergy Type Status Severity Reaction(s) Onset Date Inactive Date Treating Clinician Comments Source Penicill ins Propensi ty to adverse reaction s Active Hives 07-01 00:00: 00 bruises [facility] PENICILL INS Drug Class Active Hives 07-01 00:00: 00 [facility] albutero l albutero l Active Unknown [facility] [id number] Drug allergy Active Unknown [facility] Social History Social Habit Start Date Stop Date Quantity Comments Source History of Tobacco Use [facility] Sex Assigned At [facility] Exposure to SARS-CoV-2 (event) 2021-08-31 00:00:00 2021-09-10 08:11:00 Not sure [facility] Alcohol intake 2021-09-10 00:00:00 2021-09-10 00:00:00 Current non-drinker of alcohol (finding) [facility] Tobacco use and exposure 2014-10-22 00:00:00 2014-10-22 00:00:00 Smokeless tobacco non-user [facility] Smoking Status Start Date Stop Date Source Never Smoker [facility] Medications Ordered Medication Name Filled Medication Name Start Date Stop Date Current Medication? Ordering Clinician Indication Dosage Frequency Signature (SIG) Comments Components Source traMADol HCl 50 MG traMADol HCl 50 MG 2023-02 2- 00:00: 00 No 1{table t_as_ne eded} QID traMADol HCl 50 MG Ozempic (2 MG/DOSE) 8 MG/3ML Ozempic (2 MG/DOSE) 8 MG/3ML -04 00:00: 00 No Ozempic (2 MG/DOSE) 8 MG/3ML BUPivacaine HCl BUPivacaine HCl 2022-02 2- 00:00: [address] [facility] Bupivicaine [place] Bupivicaine [place] 1-17 00:00: [address] [facility] Kenalog (Triamcinol one) Kenalog (Triamcinol one) 1-17 00:00: 00 No 40mg [facility] diclofenac 75 mg EC tablet 09-13 00:00: 00 Yes 75mg Take 1 tablet by mouth in the morning and 1 tablet in the evening. Take with meals. [facility] diclofenac 75 mg EC tablet 09-10 00:00: 00 Yes [id number] 75mg Take 1 tablet by mouth in the morning and 1 tablet in the evening. Take with meals. [facility] ibuprofen 600 mg tablet 09-05 00:00: 00 Yes [id number] 9100 600mg Take 1 tablet by mouth every 6 (six) hours as needed for Pain (scale 4-6). [facility] HYDROcodone -acetaminop hen (NORCO) 7.5-325 mg per tablet 09-05 00:00: 00 09-13 04:59 :00 No [id number] 1{tbl} Take 1 tablet by mouth every 8 (eight) hours as needed for Pain for up to 7 days. Indication s: acute pain [facility] diclofenac (VOLTAREN) 75 mg EC tablet 07-27 00:00: 00 Yes TAKE 1 TABLET BY MOUTH 2 (TWO) TIMES DAILY WITH MEALS FOR 30 DAYS. [facility] CARVEDILOL 6.25 MG ORAL TAB 06-22 16:08: 07 Yes 2 twice daily [facility] ASPIRIN 81 MG ORAL TAB 06-22 16:08: 07 Yes 1 daily [facility] CENTRUM ORAL 06-22 16:08: 07 Yes 1 daily [facility] carvedilol (COREG) 25 mg tablet 06-22 16:08: 07 Yes 25mg Take 25 mg by mouth 2 (two) times daily. [facility] ALBIGLUTIDE (TANZEUM SC) 06-22 16:08: 07 Yes inject under the skin. [facility] SIMVASTATIN 80 MG ORAL TAB 06-22 16:06: 20 Yes 1 daily [facility] KLOR-CON 10 10 MEQ ORAL TBSR 06-22 16:06: 20 Yes 1 daily [facility] XOPENEX HFA INHALE 06-22 16:06: 20 Yes 2 puffs daily PRN [facility] NEURONTIN 800 MG ORAL TAB 06-22 16:06: 20 Yes 1 Daily [facility] metFORMIN (GLUCOPHAGE ) 1,000 mg tablet 06-22 16:06: 20 Yes 1000mg Take 1,000 mg by mouth 2 (two) times daily. [facility] losartan (COZAAR) 100 mg tablet 06-22 16:06: 20 Yes 100mg Take 100 mg by mouth daily. [facility] ferrous sulfate (IRON, FERROUS SULFATE,) 325 mg (65 mg iron) tablet 06-22 16:06: 20 Yes 325mg Take 325 mg by mouth daily. [facility] glipiZIDE (GLUCOTROL) 5 mg tablet 05-03 00:00: 00 Yes 5mg Take 5 mg by mouth daily. [facility] DIOVAN 320 MG ORAL TAB 11-13 09:23: 44 Yes 1 daily [facility] blood sugar diagnostic (ONE TOUCH ULTRA TEST) strip 08-07 00:00: 00 Yes before meals. [facility] BD INSULIN PEN NEEDLE UF MINI 31 X 3/16 INCH MISC NDLE 11-04 00:00: 00 Yes use twice daily with byetta pen [facility] Furosemide 20 MG Furosemide 20 MG No 1{table t} QD Furosemide 20 MG Cetirizine HCl 10 MG Cetirizine HCl 10 MG No 1{table t} QD Cetirizine HCl 10 MG Carvedilol 25 MG Carvedilol 25 MG No 1{table t_with_ food} BID Carvedilol 25 MG traZODone HCl 100 MG traZODone HCl 100 MG No 1{table t_at_be dtime_a s_neede d} QD traZODone HCl 100 MG Famotidine 20 MG Famotidine 20 MG [...] 6xD Ventolin HFA 108 (90 Base) MCG/ACT Aspirin Adult Low Strength 81 MG Aspirin Adult Low Strength 81 MG No 1{table t} QD Aspirin Adult Low Strength 81 MG Iron (Ferrous Sulfate) 325 (65 Fe) MG Iron (Ferrous Sulfate) 325 (65 Fe) MG No 1{table t} Iron (Ferrous Sulfate) 325 (65 Fe) MG Naproxen 500 MG Naproxen 500 MG No BID Naproxen 500 MG Simvastatin 40 MG Simvastatin 40 MG No 1{table t_in_ e_eveni ng} QD Simvastati n 40 MG Immunizations Ordered Immunization Name Filled Immunization Name Date Status Comments Source Pneumovax (PPSV23) Pneumovax (PPSV23) 2021-09-29 10:40:[address] [facility] Pneumovax (PPSV23) Pneumovax (PPSV23) 2021-09-29 10:40:[address] [facility] Pneumovax (PPSV23) Pneumovax (PPSV23) 2021-09-29 10:40:[address] [facility] Pneumovax (PPSV23) Pneumovax (PPSV23) 2021-09-29 10:40:[address] [facility] Pneumovax (PPSV23) Pneumovax (PPSV23) 2021-09-29 10:40:[address] [facility] Pneumovax (PPSV23) Pneumovax (PPSV23) 2021-09-29 10:40:[address] [facility] FluAD FluAD 2020-11-26 16:17:[address] [facility] FluAD FluAD 2020-11-26 16:17:[address] [facility] FluAD FluAD 2020-11-26 16:17:[address] [facility] FluAD FluAD 2020-11-26 16:17:[address] [facility] FluAD FluAD 2020-11-26 16:17:[address] [facility] FluAD FluAD 2020-11-26 16:17:[address] [facility] FluAD FluAD 2020-11-26 16:17:[address] [facility] FluAD FluAD Unknown Completed [facility] Pneumovax (PPSV23) Pneumovax (PPSV23) Unknown Completed [facility] FluAD FluAD Unknown Completed [facility] Pneumovax (PPSV23) Pneumovax (PPSV23) Unknown Completed [facility] FluAD FluAD Unknown Completed [facility] Pneumovax (PPSV23) Pneumovax (PPSV23) Unknown Completed [facility] FluAD FluAD Unknown Completed [facility] Pneumovax (PPSV23) Pneumovax (PPSV23) Unknown Completed [facility] FluAD FluAD Unknown Completed [facility] Pneumovax (PPSV23) Pneumovax (PPSV23) Unknown Completed [facility] FluAD FluAD Unknown Completed [facility] Pneumovax (PPSV23) Pneumovax (PPSV23) Unknown Completed [facility] FluAD FluAD Unknown Completed [facility] Pneumovax (PPSV23) Pneumovax (PPSV23) Unknown Completed [facility] Shingrix Shingrix Unknown Completed [facility] Flu Vaccine for Medicare Flu Vaccine for Medicare Unknown Completed [facility] FluAD FluAD Unknown Completed [facility] Pneumovax (PPSV23) Pneumovax (PPSV23) Unknown Completed [facility] FluAD FluAD Unknown Completed [facility] Pneumovax (PPSV23) Pneumovax (PPSV23) Unknown Completed [facility] FluAD FluAD Unknown Completed [facility] Pneumovax (PPSV23) Pneumovax (PPSV23) Unknown Completed [facility] FluAD FluAD Unknown Completed [facility] Pneumovax (PPSV23) Pneumovax (PPSV23) Unknown Completed [facility] FluAD FluAD Unknown Completed [facility] Pneumovax (PPSV23) Pneumovax (PPSV23) Unknown Completed [facility] FluAD FluAD Unknown Completed [facility] Pneumovax (PPSV23) Pneumovax (PPSV23) Unknown Completed [facility] FluAD FluAD Unknown Completed [facility] Pneumovax (PPSV23) Pneumovax (PPSV23) Unknown Completed [facility] FluAD FluAD Unknown Completed [facility] Pneumovax (PPSV23) Pneumovax (PPSV23) Unknown Completed [facility] FluAD FluAD Unknown Completed [facility] Pneumovax (PPSV23) Pneumovax (PPSV23) Unknown Completed [facility] FluAD FluAD Unknown Completed [facility] Pneumovax (PPSV23) Pneumovax (PPSV23) Unknown Completed [facility] FluAD FluAD Unknown Completed [facility] Pneumovax (PPSV23) Pneumovax (PPSV23) Unknown Completed [facility] FluAD FluAD Unknown Completed [facility] Pneumovax (PPSV23) Pneumovax (PPSV23) Unknown Completed [facility] FluAD FluAD Unknown Completed [facility] Pneumovax (PPSV23) Pneumovax (PPSV23) Unknown Completed [facility] Vital Signs Vital Name Observation Time Observation Value Comments S nicole height 2024-02-22 10:15:00 64 [in_i] Commo n [facility] weight 2024-02-22 10:15:00 199 [lb_av] Comm on [facility] temperature 2024-02-22 10:15:00 97.2 [degF] Com [facility] bmi 2024-02-22 10:15:00 34.15 kg/m2 Comm on [facility] oximetry 2024-02-22 10:15:00 [facility] 10:15:00 16 /min [facility] blood pressure systolic 2024-02-22 10:15:00 126 mm[Hg] [facility] blood pressure diastolic 2024-02-22 10:15:00 72 mm[Hg] [facility] height 2024-01-31 08:30:00 64 [in_i] Commo n [facility] weight 2024-01-31 08:30:00 199 [lb_av] Comm on [facility] temperature 2024-01-31 08:30:00 98.5 [degF] Com [facility] bmi 2024-01-31 08:30:00 34.15 kg/m2 Comm on [facility] blood pressure systolic 2024-01-31 08:30:00 128 mm[Hg] Common [facility] blood pressure diastolic 2024-01-31 08:30:00 77 mm[Hg] [facility] height 2024-01-23 09:30:00 64 [in_i] Commo n [facility] weight 2024-01-23 09:30:00 199.4 [lb_av] Co mmon [facility] temperature 2024-01-23 09:30:00 97.6 [degF] Com mon [facility] bmi 2024-01-23 09:30:00 34.22 kg/m2 Comm on [facility] oximetry 2024-01-23 09:30:00 97 % Commo n [facility] respiratory rate 2024-01-23 09:30:00 18 /min Common [facility] blood pressure systolic 2024-01-23 09:30:00 122 mm[Hg] [facility] blood pressure diastolic 2024-01-23 09:30:00 72 mm[Hg] Common [facility] height 2024-01-01 15:20:00 64 [in_i] Commo n [facility] weight 2024-01-01 15:20:00 202.0 [lb_av] Co on [facility] temperature 2024-01-01 15:20:00 97.2 [degF] Com [facility] bmi 2024-01-01 15:20:00 34.67 kg/m2 Comm on [facility] oximetry 2024-01-01 15:20:00 98 % Commo n [facility] respiratory rate 2024-01-01 15:20:00 18 /min Common [facility] blood pressure systolic 2024-01-01 15:20:00 122 mm[Hg] [facility] blood pressure diastolic 2024-01-01 15:20:00 59 mm[Hg] [facility] height 2023-11-01 15:20:00 64 [in_i] Commo n [facility] temperature 2023-11-01 15:20:00 95.6 [degF] Com [facility] oximetry 2023-11-01 15:20:00 97 % Commo n [facility] blood pressure systolic 2023-11-01 15:20:00 122 mm[Hg] [facility] blood pressure diastolic 2023-11-01 15:20:00 68 mm[Hg] [facility] height 2023-11-01 15:20:00 64 [in_i] Commo n [facility] bmi 2023-11-01 15:20:00 35.36 kg/m2 Comm on [facility] oximetry 2023-11-01 15:20:00 97 % Commo n [facility] blood pressure systolic 2023-11-01 15:20:00 122 mm[Hg] [facility] blood pressure diastolic 2023-11-01 15:20:00 68 mm[Hg] [facility] height 2023-07-31 15:20:00 64 [in_i] Commo n [facility] weight 2023-07-31 15:20:00 206.4 [lb_av] Co mmon [facility] temperature 2023-07-31 15:20:00 97.6 [degF] Com mon [facility] bmi 2023-07-31 15:20:00 35.42 kg/m2 Comm on [facility] oximetry 2023-07-31 15:20:00 98 % Commo n [facility] blood pressure systolic 2023-07-31 15:20:00 128 mm[Hg] [facility] blood pressure diastolic 2023-07-31 15:20:00 70 mm[Hg] [facility] height 2023-05-10 09:10:00 64 [in_i] Commo n [facility] weight 2023-05-10 09:10:00 206.0 [lb_av] Co mmon [facility] temperature 2023-05-10 09:10:00 97.8 [degF] Com mon [facility] bmi 2023-05-10 09:10:00 35.36 kg/m2 Comm on [facility] oximetry 2023-05-10 09:10:00 99 % Commo n [facility] respiratory rate 2023-05-10 09:10:00 18 /min Common [facility] blood pressure systolic 2023-05-10 09:10:00 136 mm[Hg] [facility] blood pressure diastolic 2023-05-10 09:10:00 71 mm[Hg] [facility] height 2023-02-14 10:15:00 64 [in_i] Commo n [facility] weight 2023-02-14 10:15:00 210 [lb_av] Comm on [facility] temperature 2023-02-14 10:15:00 97.9 [degF] Com mon [facility] bmi 2023-02-14 10:15:00 36.04 kg/m2 Comm on [facility] blood pressure systolic 2023-02-14 10:15:00 128 mm[Hg] [facility] blood pressure diastolic 2023-02-14 10:15:00 84 mm[Hg] [facility] height 2022-12-28 15:10:00 64 [in_i] Commo n [facility] weight 2022-12-28 15:10:00 205 [lb_av] Comm on [facility] bmi 2022-12-28 15:10:00 35.18 kg/m2 Comm on [facility] blood pressure systolic 2022-12-28 15:10:00 132 mm[Hg] [facility] blood pressure diastolic 2022-12-28 15:10:00 78 mm[Hg] [facility] height 2022-09-28 14:20:00 64 [in_i] Commo n [facility] weight 2022-09-28 14:20:00 219.0 [lb_av] Co mmon [facility] temperature 2022-09-28 14:20:00 97.6 [degF] Com mon [facility] bmi 2022-09-28 14:20:00 37.59 kg/m2 Comm on [facility] oximetry 2022-09-28 14:20:00 98 % Commo n [facility] respiratory rate 2022-09-28 14:20:00 18 /min Common [facility] blood pressure systolic 2022-09-28 14:20:00 138 mm[Hg] [facility] blood pressure diastolic 2022-09-28 14:20:00 75 mm[Hg] [facility] height 2022-09-28 14:20:00 64 [in_i] Commo n [facility] weight 2022-09-28 14:20:00 219.0 [lb_av] Co mmon [facility] temperature 2022-09-28 14:20:00 97.6 [degF] Com [facility] bmi 2022-09-28 14:20:00 37.59 kg/m2 Comm on [facility] oximetry 2022-09-28 14:20:00 98 % Commo n [facility] respiratory rate 2022-09-28 14:20:00 18 /min Common [facility] blood pressure systolic 2022-09-28 14:20:00 138 mm[Hg] [facility] blood pressure diastolic 2022-09-28 14:20:00 75 mm[Hg] [facility] height 2022-09-06 13:45:00 64 [in_i] Commo n [facility] weight 2022-09-06 13:45:00 216 [lb_av] Comm on [facility] temperature 2022-09-06 13:45:00 98.0 [degF] Com [facility] bmi 2022-09-06 13:45:00 37.07 kg/m2 Comm on [facility] blood pressure systolic 2022-09-06 13:45:00 134 mm[Hg] [facility] blood pressure diastolic 2022-09-06 13:45:00 86 mm[Hg] [facility] height 2022-07-28 13:30:00 64 [in_i] Commo n [facility] weight 2022-07-28 13:30:00 216.6 [lb_av] Co mmon [facility] bmi 2022-07-28 13:30:00 37.18 kg/m2 Comm on [facility] blood pressure systolic 2022-07-28 13:30:00 129 mm[Hg] [facility] blood pressure diastolic 2022-07-28 13:30:00 64 mm[Hg] [facility] height 2022-06-07 16:40:00 64 [in_i] Commo n [facility] weight 2022-06-07 16:40:00 214 [lb_av] Comm on [facility] temperature 2022-06-07 16:40:00 98 [degF] Comm on [facility] bmi 2022-06-07 16:40:00 36.73 kg/m2 Comm on [facility] blood pressure systolic 2022-06-07 16:40:00 124 mm[Hg] [facility] blood pressure diastolic 2022-06-07 16:40:00 70 mm[Hg] [facility] height 2022-03-15 15:00:00 64 [in_i] Commo n [facility] weight 2022-03-15 15:00:00 215 [lb_av] Comm on [facility] temperature 2022-03-15 15:00:00 97.2 [degF] Com mon [facility] bmi 2022-03-15 15:00:00 36.9 kg/m2 Commo n [facility] blood pressure systolic 2022-03-15 15:00:00 126 mm[Hg] [facility] blood pressure diastolic 2022-03-15 15:00:00 76 mm[Hg] [facility] height 2022-01-31 14:50:00 64 [in_i] Commo n [facility] weight 2022-01-31 14:50:00 219.7 [lb_av] [facility] 2022-01-31 14:50:00 97.3 [degF] Com mon [facility] bmi 2022-01-31 14:50:00 37.71 kg/m2 Comm on [facility] oximetry 2022-01-31 14:50:00 98 % Commo n [facility] respiratory rate 2022-01-31 14:50:00 18 /min [facility] blood pressure systolic 2022-01-31 14:50:00 136 mm[Hg] [facility] blood pressure diastolic 2022-01-31 14:50:00 62 mm[Hg] Common [facility] height 2021-11-16 10:40:00 64 [in_i] Commo n [facility] weight 2021-11-16 10:40:00 223.8 [lb_av] [facility] 2021-11-16 10:40:00 38.41 kg/m2 Comm on [facility] height 2021-09-29 09:50:00 64 [in_i] Commo n [facility] weight 2021-09-29 09:50:00 223.8 [lb_av] Co [facility] temperature 2021-09-29 09:50:00 97.6 [degF] Com mon [facility] bmi 2021-09-29 09:50:00 38.41 kg/m2 Comm on [facility] oximetry 2021-09-29 09:50:00 99 % Commo n [facility] respiratory rate 2021-09-29 09:50:00 18 /min [facility] blood pressure systolic 2021-09-29 09:50:00 138 mm[Hg] Common [facility] blood pressure diastolic 2021-09-29 09:50:00 74 mm[Hg] Common [facility] height 2021-09-29 10:00:00 64 [in_i] Commo n [facility] weight 2021-09-29 10:00:00 223.8 [lb_av] Co mmon [facility] temperature 2021-09-29 10:00:00 97.6 [degF] Com mon [facility] bmi 2021-09-29 10:00:00 38.41 kg/m2 Comm on [facility] oximetry 2021-09-29 10:00:00 99 % Commo n [facility] respiratory rate 2021-09-29 10:00:00 18 /min [facility] blood pressure systolic 2021-09-29 10:00:00 138 mm[Hg] [facility] blood pressure diastolic 2021-09-29 10:00:00 74 mm[Hg] [facility] Systolic blood pressure 2021-09-10 13:15:00 136 mm[Hg] [facility] Diastolic blood pressure 2021-09-10 13:15:00 62 mm[Hg] [facility] Heart rate 2021-09-10 13:15:00 81 /min [facility] Body height 2021-09-10 13:15:00 162.6 cm [facility] Body weight 2021-09-10 13:15:00 97.523 kg [facility] BMI 2021-09-10 13:15:00 36.90 kg/m2 [facility] height 2021-05-17 16:20:00 64 [in_i] Commo n [facility] weight 2021-05-17 16:20:00 214.4 [lb_av] Co mmon [facility] temperature 2021-05-17 16:20:00 97.5 [degF] Com [facility] bmi 2021-05-17 16:20:00 36.8 kg/m2 Commo n [facility] oximetry 2021-05-17 16:20:00 100 % Commo n [facility] respiratory rate 2021-05-17 16:20:00 18 /min Common [facility] blood pressure systolic 2021-05-17 16:20:00 136 mm[Hg] [facility] blood pressure diastolic 2021-05-17 16:20:00 72 mm[Hg] Common [facility] height 2021-02-15 16:30:00 64 [in_i] Commo n [facility] weight 2021-02-15 16:30:00 217.2 [lb_av] Co mmon [facility] temperature 2021-02-15 16:30:00 97.3 [degF] Com [facility] bmi 2021-02-15 16:30:00 37.28 kg/m2 Comm on [facility] oximetry 2021-02-15 16:30:00 100 % Commo n [facility] respiratory rate 2021-02-15 16:30:00 18 /min Common [facility] blood pressure systolic 2021-02-15 16:30:00 134 mm[Hg] Common [facility] blood pressure diastolic 2021-02-15 16:30:00 70 mm[Hg] Common [facility] temperature 2020-11-19 15:50:00 98.7 [degF] Com [facility] bmi 2020-11-19 15:50:00 38.10 kg/m2 Comm on [facility] blood pressure systolic 2020-11-19 15:50:00 131 mm[Hg] [facility] blood pressure diastolic 2020-11-19 15:50:00 75 mm[Hg] [facility] height 2020-11-19 15:50:00 64 [in_i] Commo n [facility] weight 2020-11-19 15:50:00 222 [lb_av] Comm on [facility] Encounters Start Date/Time End Date/Time Encounter Type Admission Type Attending [facility] Care Facility Care Department Encounter ID Source 2024-01-31 12:38:00 Outpatient De La Cruz, Ankur STLC STLC [id number] [facility] 2023-05-08 14:38:00 Outpatient De La Cruz, Ankur STLC STLMLC [id number] [facility] 2023-02-14 14:59:00 Outpatient De La Cruz, Ankur STLC STLMLC [id number] [facility] 2022-09-28 14:17:00 Outpatient De La Cruz, Ankur STLC STLMLC [id number] [facility] 2022-09-27 08:21:00 Outpatient De La Cruz, Ankur STLC STLMLC [id number] [facility] 2022-06-03 10:37:00 Outpatient De La Cruz, Ankur STLC STLMLC [id number] [facility] 2022-03-15 15:32:01 Outpatient De La Cruz, Ankur STLC STLMLC [id number] [facility] 2022-02-03 13:51:01 Outpatient De La Cruz, Ankur STLC STLMLC [id number] [facility] 2022-01-27 13:41:00 Outpatient De La Cruz, Ankur STLC STLMLC [id number] [facility] 2021-11-16 10:10:01 Outpatient De La Cruz, Ankur STLC STLMLC [id number] [facility] 2021-03-24 14:26:23 Outpatient De La Cruz, Ankur STLMLC STLMLC [id number] [facility] 2021-03-24 13:48:35 Outpatient De La Cruz, Ankur STLC STLMLC [id number] [facility] 2021-03-24 13:43:52 Outpatient De La Cruz, Ankur STLC STLMLC [id number] [facility] 2021-03-24 13:16:01 Outpatient De La Cruz, Ankur STLC STLMLC [id number] [facility] 2021-03-24 12:38:02 Outpatient De La Cruz, Ankur STLC STLMLC [id number] [facility] 2024-02-22 00:00:00 2024-02-22 00:00:00 OFFICE VISIT ESTAB PT LEVEL [id number] [facility] 2024-02-19 00:00:00 2024-02-19 00:00:00 (TEL) STLMLC STLMLC [id number] [facility] 2024-02-14 00:00:00 2024-02-14 00:00:00 (TEL) STLMLC STLMLC [id number] [facility] 2024-02-12 00:00:00 2024-02-12 00:00:00 (TEL) STLMLC STLMLC [id number] [facility] 2024-02-01 00:00:00 2024-02-01 00:00:00 (TEL) STLMLC STLMLC [id number] [facility] 2024-01-31 00:00:00 2024-01-31 00:00:00 (TEL) STLMLC STLMLC [id number] [facility] 2024-01-31 00:00:00 2024-01-31 00:00:00 (ESTPT) Establishe d Patient STLMLC STLMLC [id number] [facility] 2024-01-23 00:00:00 2024-01-23 00:00:00 OFFICE VISIT ESTAB PT LEVEL [id number] [facility] 2024-01-23 00:00:00 2024-01-23 00:00:00 (TEL) STLMLC STLMLC [id number] [facility] 2024-01-18 00:00:00 2024-01-18 00:00:00 (TEL) STLMLC STLMLC [id number] [facility] 2024-01-01 00:00:00 2024-01-01 00:00:00 OFFICE VISIT ESTAB PT LEVEL [id number] [facility] 2023-12-27 00:00:00 2023-12-27 00:00:00 (TEL) STLMLC STLMLC [id number] [facility] 2023-12-26 00:00:00 2023-12-26 00:00:00 (TEL) STLMLC STLMLC [id number] [facility] 2023-11-01 00:00:00 2023-11-01 00:00:00 OFFICE VISIT ESTAB PT LEVEL [id number] [facility] 2023-11-01 00:00:00 2023-11-01 00:00:00 (TEL) STLMLC STLMLC [id number] [facility] 2023-11-01 00:00:00 2023-11-01 00:00:00 SUB [facility]NUAL [facility] VISIT STLMLC STLMLC [id number] [facility] 2023-11-01 00:00:00 2023-11-01 00:00:00 (TEL) STLMLC STLMLC [id number] [facility] 2023-09-18 00:00:00 2023-09-18 00:00:00 (TEL) STLMLC STLMLC [id number] [facility] 2023-07-31 00:00:00 2023-07-31 00:00:00 OFFICE VISIT ESTAB PT LEVEL [id number] [facility] 2023-07-03 00:00:00 2023-07-03 00:00:00 (TEL) STLMLC STLMLC [id number] [facility] 2023-06-30 00:00:00 2023-06-30 00:00:00 (TEL) STLMLC STLMLC [id number] [facility] 2023-05-24 00:00:00 2023-05-24 00:00:00 (TEL) STLMLC STLMLC [id number] [facility] 2023-05-23 00:00:00 2023-05-23 00:00:00 (TEL) STLMLC STLMLC [id number] [facility] 2023-05-10 00:00:00 2023-05-10 00:00:00 OFFICE VISIT ESTAB PT LEVEL [id number] [facility] 2023-02-14 00:00:00 2023-02-14 00:00:00 OFFICE VISIT ESTAB PT LEVEL [id number] [facility] 2023-01-18 00:00:00 2023-01-18 00:00:00 (TEL) STLMLC STLMLC [id number] [facility] 2022-12-30 00:00:00 2022-12-30 00:00:00 (TEL) STLMLC STLMLC [id number] [facility] 2022-12-28 00:00:00 2022-12-28 00:00:00 OFFICE VISIT ESTAB PT LEVEL [id number] [facility] 2022-09-28 00:00:00 2022-09-28 00:00:00 OFFICE VISIT ESTAB PT LEVEL [id number] [facility] 2022-09-28 00:00:00 2022-09-28 00:00:00 SUB ANNUAL [facility] VISIT STLMLC STLMLC [id number] [facility] 2022-09-28 00:00:00 2022-09-28 00:00:00 (TEL) STLMLC STLMLC [id number] [facility] 2022-09-06 00:00:00 2022-09-06 00:00:00 (TEL) STLMLC STLMLC [id number] [facility] 2022-09-06 00:00:00 2022-09-06 00:00:00 OFFICE VISIT ESTAB PT LEVEL [id number] [facility] 2022-09-01 00:00:00 2022-09-01 00:00:00 (TEL) STLMLC STLMLC [id number] [facility] 2022-08-09 00:00:00 2022-08-09 00:00:00 (TEL) STLMLC STLMLC [id number] [facility] 2022-07-28 00:00:00 2022-07-28 00:00:00 OFFICE VISIT ESTAB PT LEVEL [id number] [facility] 2022-07-28 00:00:00 2022-07-28 00:00:00 (TEL) STLMLC STLMLC [id number] [facility] 2022-06-07 00:00:00 2022-06-07 00:00:00 OFFICE VISIT ESTAB PT LEVEL [id number] [facility] 2022-03-15 00:00:00 2022-03-15 00:00:00 OFFICE VISIT NEW PT LEVEL [id number] [facility] 2022-01-31 00:00:00 2022-01-31 00:00:00 OFFICE VISIT ESTAB PT LEVEL [id number] [facility] 2022-01-31 00:00:00 2022-01-31 00:00:00 (TEL) STLMLC STLMLC [id number] [facility] 2021-11-16 00:00:00 2021-11-16 00:00:00 OFFICE VISIT ESTAB PT LEVEL [id number] [facility] 2021-11-15 00:00:00 2021-11-15 00:00:00 (TEL) STLMLC STLMLC [id number] [facility] 2021-10-01 00:00:00 2021-10-01 00:00:00 (TEL) STLMLC STLMLC [id number] [facility] 2021-09-29 00:00:00 2021-09-29 00:00:00 OFFICE VISIT ESTAB PT LEVEL [id number] [facility] 2021-09-29 00:00:00 2021-09-29 00:00:00 SUB ANNUAL [facility] VISIT STLMLC STLMLC [id number] [facility] 2021-09-13 00:00:00 2021-09-13 00:00:00 Telephone Chelsey Bose [facility] [id number] [facility] 2021-09-10 08:00:00 2021-09-10 08:40:59 Outpatient R CHELSEY BOSE [facility] [id number] [facility] 2021-09-10 08:00:00 2021-09-10 08:40:59 Office Visit Chelsey Bose [facility] [id number] [facility] 2021-09-06 00:00:00 2021-09-06 00:00:00 (TEL) STLMLC STLMLC [id number] [facility] 2021-09-05 19:31:00 2021-09-05 21:15:00 Emergency X TAI SCHAEFER [facility] E[facility] [id number] [facility] 2021-09-05 19:31:00 2021-09-05 21:15:00 Emergency X TAI SCHAEFER [facility] ERT [id number] [facility] 2021-09-05 19:31:00 2021-09-05 21:15:00 Emergency Tai Schaefer [facility] [id number] [facility] 2021-07-30 00:00:00 2021-07-30 00:00:00 (TEL) STLMLC STLMLC [id number] [facility] 2021-07-28 00:00:00 2021-07-28 00:00:00 (TEL) STLMLC STLMLC [id number] [facility] 2021-05-17 00:00:00 2021-05-17 00:00:00 OFFICE VISIT ESTAB PT LEVEL [id number] [facility] 2021-02-15 00:00:00 2021-02-15 00:00:00 OFFICE VISIT ESTAB PT LEVEL [id number] [facility] 2020-11-19 00:00:00 2020-11-19 00:00:00 OFFICE VISIT ESTAB PT LEVEL [id number] [facility] 2020-10-22 00:00:00 2020-10-22 00:00:00 (TEL) STLMLC STLMLC [id number] [facility] 2020-08-14 00:00:00 2020-08-14 00:00:00 Outpatient STLMLC STLMLC [id number] [facility] 2020-08-14 00:00:00 2020-08-14 00:00:00 Outpatient STLMLC STLMLC [id number] [facility] 2020-08-14 00:00:00 2020-08-14 00:00:00 Outpatient STLMLC STLMLC [id number] [facility] 2020-06-11 00:00:00 2020-06-11 00:00:00 Outpatient STLMLC STLMLC [id number] [facility] 2020-05-05 00:00:00 2020-05-05 00:00:00 Outpatient [address]LMLC STLMLC [id number] [facility] 2019-07-03 15:27:00 2019-07-03 23:59:00 Hospital Encounter BoseChelsey martino [facility] 1.840.114 [id number] [id number] [facility] 2019-07-03 15:45:00 2019-07-03 15:45:00 Outpatient R YURIY CHELSEY [facility] [id number] [facility] 2019-07-03 15:18:42 2019-07-03 15:38:50 Office Visit Yuriy Chelsey Burton [facility] [place] 1..840.114 [id number] [id number] [id number] [facility] 2019-07-03 15:18:42 2019-07-03 15:38:50 Office Visit BoseChelsey [facility] [place] [id number] [id number] 2019-03-20 16:10:00 2019-03-20 23:59:00 Hospital Encounter Dewey Bosejacqueline Burton [facility] [place] [id number] [id number] [id number] [id number] [facility] 2019-03-20 16:01:36 2019-03-20 16:24:52 Office Visit Chelsey Bose [facility] bonilla Fierro [id number] [id number] [id number] [facility] Results Test Description Test Time Test Comments Results Result Co mments Source Lumbar Spine 3 Views Lumbar Spine 3 Views
--- NOTE | 2024-05-23 15:59 | RAD REPORT ---
EXAM:Extremity Venous Uni Ltd HISTORY: Right leg pain TECHNIQUE: Sonographic evaluation right lower extremity performed.Grayscale, color and spectral misha sis performed on all vessels COMPARISON: None. FINDINGS: Right common femoral, superficial femoral, greater saphenous, popliteal and posterior tibial veins ar e compressible and demonstrate augmentation. Doppler demonstrates good flow. 2.6 cm right Richardson's cyst IMPRESSION: No evidence of deep venous thrombosis involving the right lower extremity. 2.6 cm right Richardson's cyst
--- NOTE | 2024-05-23 16:02 | RAD REPORT ---
EXAMINATION: Tib Fib Right CLINICAL INDICATION: Right leg pain FINDINGS: Bony densities adjacent to the medial malleolus appear chronic. No acute fracture seen
[2024-05-23] MEDS ORDERED: NA CHLORIDE 0.9% 500 ML ONE ×2 (16:05→18:45)
[2024-05-23] MEDS ORDERED: HYDROCODONE/APAP 7.5/325 MG TAB ONE (16:05)
[2024-05-23 16:12] LABS: Specific Gravity 1.012 (1.005-1.030); Sqamous Epithelial <5 /HPF (None Seen); Urine Bacteria None Seen /HPF (<20); Urine Bilirubin NEGATIVE (Negative); Urine Blood Negative (Negative); Urine Clarity Clear (Clear); Urine Color Colorless (Yellow); Urine Culture Reflex Order NOT NEEDED; Urine Glucose 4+ (Over) (Negative); Urine Ketones NEGATIVE (Negative); Urine Microscopic Reflex YN ORDER UMIC; Urine Mucus Slight /HPF (None Seen); Urine Nitrite NEGATIVE (Negative); Urine Protein NEGATIVE (Negative); Urine RBC None Seen /HPF (None Seen); Urine Urobilinogen Normal (Normal)
[2024-05-23 16:17] LABS: Absolute Basophils 0.1 K/uL (0-0.5); Absolute Eosinophils 0.2 K/uL (0-0.5); Absolute Lymphocytes (CBC) 2.2 K/uL (0.7-4.9); Absolute Monocytes 0.6 K/uL (0.1-1.3); Absolute Neutrophil 4.3 K/uL (1.8-8.0); Eosinophils % 2.3 % (0-4.4); Hematocrit 28.9 % (36.0-45.0); MCH 29.2 pg (27.0-35.0); MCHC 34.6 g/dL (32.0-36.0); MCV 84.2 fL (80-100); MPV 8.4 fL (7.6-11.3); Monocytes % 8.1 % (3.3-12.3); Neutrophils % 58.6 % (41.7-73.7); Platelets 279 thou/uL (152-406); RBC Red Blood Cell Count 3.43 M/uL (3.86-4.86); Red Cell Distribution Width 15.2 % (12.1-15.2)
[2024-05-23 16:43] LABS: Albumin 3.2 g/dL (3.4-5.0); Albumin/Globulin Ratio 0.9 (1.1-1.8); BETA HYDROXYBUTYRATE 0.16 mmol/L (0.02-0.27); Bilirubin Total 0.3 mg/dL (0.2-1.0); Globulin 3.7 g/dL (2.3-3.5); Protein, Total 6.9 g/dL (6.4-8.2)
[2024-05-23] MEDS ORDERED: INSULIN REGULAR (HUMAN) 100 UNIT/ML ONE ×2 (17:38→18:45)
--- NOTE | 2024-05-23 20:28 | ER ---
Nurse's Notes [facility] Name: Crys Munoz Age: 78 yrs Sex: Female : 1945 Arrival Date: 05/23/2024 Time: 14:36 Bed 5 Private MD: Diagnosis: Pain in right leg;Diabetes mellitus due to underlying condition with hyperglycemia;Abnormal results of kidney function studies Presentation: 05/23 14:50 Chief complaint: Patient states: Blood sugar in the 600's 30 minutes [employer]. . RLE pain ll1 for 2 days. Coronavirus screen: Client denies travel out of the [place] in the last 14 days. At this time, the client does not indicate any symptoms associated with coronavirus-19. Ebola Screen: Patient denies travel to an Ebola-affected area in the 21 days before illness onset. Initial Sepsis Screen: Does the patient meet any 2 criteria? No. Patient's initial sepsis screen is negative. Does the patient have a suspected source of infection? No. Patient's initial sepsis screen is negative. Risk Assessment: Do you want to hurt yourself or someone else? Patient reports no desire to harm self or others. Onset of symptoms was May 22, 2024. 14:50 Method Of Arrival: Wheelchair ll1 14:50 Acuity: MONTSE 2 ll1 Triage Assessment: 14:56 General: Appears in no apparent distress. Behavior is calm, cooperative, appropriate ll1 for age. General: Reports high blood sugar. Pain: Complains of pain in right leg. GI: Reports. Musculoskeletal: Reports pain in right leg. Historical: - Allergies: 14:49 PENICILLINS; ll1 - PMHx: 14:49 Asthma; diabetes mellitus; ll1 - PSHx: 14:49 partial hysterectomy; ll1 - Immunization history:: Adult Immunizations up to date. - Infectious Disease History:: Denies. - Social history:: Smoking status: Patient denies any tobacco usage or history of. Screenin:12 [facility] ED Fall Risk Assessment (Adult) History of falling in the last 3 months, ph including since admission No falls in past 3 months (0 pts) Confusion or Disorientation No (0 pts) Intoxicated or Sedated No (0 pts) Impaired Gait Yes (1 pt) Mobility Assist Device Used Yes (1 pt) Altered Elimination No (0 pt) Score/Fall Risk Level 0 - 2 = Low Risk Oriented to surroundings, Maintained a safe environment, Hourly rounding (assess needs \T\ fall precautionary measures) done. Abuse screen: Denies threats or abuse. Denies injuries from another. Nutritional screening: No deficits noted. Tuberculosis screening: No symptoms or risk factors identified. Assessment: 16:10 General: Appears in no apparent distress. comfortable, well groomed, Behavior is calm, ph cooperative, appropriate for age. Pain: Complains of pain in right leg. Neuro: Level of Consciousness is awake, alert, obeys commands, Oriented to person, place, time, situation. Cardiovascular: Capillary refill < 3 seconds in bilateral fingers Patient's skin is warm and dry. Respiratory: Airway is patent Respiratory effort is even, unlabored. GI: No signs and/or symptoms were reported involving the gastrointestinal system. : Reports urinary frequency. Derm: Skin is healthy with good turgor, Skin is pink, warm \T\ dry. Musculoskeletal: Swelling present in right leg. 16:45 Reassessment: DOLORES Keller notified of critical lab value Glucose 484. ss 17:56 Reassessment: Patient appears in no apparent distress at this time. Patient and/or ph family updated on plan of care and expected duration. Pain level reassessed. Patient is alert, oriented x 3, equal unlabored respirations, skin warm/dry/pink. 19:27 General: Appears in no apparent distress. comfortable, Behavior is calm, cooperative, bm8 appropriate for age. Pain: Denies pain. Neuro: Level of Consciousness is awake, alert, obeys commands, Oriented to person, place, time, situation. Cardiovascular: No deficits noted. Denies chest pain. Respiratory: Airway is patent Respiratory effort is even, unlabored. GI: Abdomen is obese, Bowel sounds present X 4 quads. Abd is soft and non tender X 4 quads. high blood sugar. : No deficits noted. No signs and/or symptoms were reported regarding the genitourinary system. EENT: No deficits noted. No signs and/or symptoms were reported regarding the EENT system. Derm: No signs and/or symptoms reported regarding the dermatologic system. Musculoskeletal: No signs and/or symptoms reported regarding the musculoskeletal system. 20:11 Reassessment: FSBS 308 provider informed. bm8 20:45 Reassessment: Patient appears in no apparent distress at this time. Patient and/or bm8 family updated on plan of care and expected duration. Pain level reassessed. Patient is alert, oriented x 3, equal unlabored respirations, skin warm/dry/pink. Vital Signs: 14:50 BP 146 / 79; Pulse 68; Resp 17; Temp 99.3(O); Pulse Ox 100% ; Weight 88.45 kg; Height 5 ll1 ft. 4 in. ; Pain 10/10; 17:56 BP 132 / 81; Pulse 67; Resp 18; Pulse Ox 98% on R/A; ph 19:27 BP 160 / 70; Pulse 66; Resp 18; Temp 99; Pulse Ox 97% ; Pain 0/10; bm8 20:45 BP 158 / 71; Pulse 65; Resp 17; Temp 99; Pulse Ox 97% ; Pain 0/10; bm8 14:50 Body Mass Index 33.47 (88.45 kg, 162.56 cm) ll1 14:50 Pain Scale: Adult ll1 19:27 Pain Scale: Adult bm8 20:45 Pain Scale: Adult bm8 [place] Coma Score: 19:27 Eye Response: spontaneous(4). Motor Response: obeys commands(6). Verbal Response: bm8 oriented(5). Total: 15. ED Course: 14:47 Patient arrived in ED. cj3 14:49 Mack Cox PA is PHCP. cp 14:49 Prakash Rodriguez MD is Attending Physician. cp 14:51 Triage completed. ll1 14:51 Arm band placed on. ll1 14:52 Patient placed in an exam room, on a stretcher. ll1 14:53 Roseline Hemphill, RN is Primary Nurse. ph 14:55 Warm blanket given. ll1 15:30 US Extremity Venous Unilateral Ltd In Process Unspecified. EDMS 15:37 XRAY Tib Fib RIGHT In Process Unspecified. EDMS 16:11 Initial lab(s) drawn, by me, sent to lab. Urine collected: clean catch specimen, clear. ph Missed attempt(s): 22 gauge in left forearm. Bleeding controlled, band aid applied, catheter tip intact. Inserted saline lock: 24 gauge in left hand, using aseptic technique. Blood collected. Flushed with 10 mL NS. 16:12 Patient has correct armband on for positive identification. Bed in low position. Call ph light in reach. Side rails up X2. Pulse ox on. NIBP on. 20:45 Provided Education on: post er ccare. bm8 20:45 No provider procedures requiring assistance completed. IV discontinued, intact, bm8 bleeding controlled, No redness/swelling at site. Pressure dressing applied. Administered Medications: 16:10 Drug: NS 0.9% IV 500 ml 500 ml IV at 1 bolus once; to be given as a bolus over 30 ph minutes Volume: 500 ml; Route: IV; Rate: 1 bolus; Site: left hand; 18:58 Follow up: Response: No adverse reaction; IV Status: Completed infusion; IV Intake: ph 500ml 16:10 Drug: Hydrocodone-Acetaminophen PO (7.5 mg-325 mg) 1 tabs PO once; RASS on ADMIN: ph Combtv4, Very Agttd3, Agttd2, Rstlss1, AlertClm0, Drwsy-1, Lt Sdtn-2, Mod Sdtn-3, Dp Sdtn-4, UnArsble-5 Route: PO; 18:58 Follow up: Response: No adverse reaction; Pain is decreased ph 16:26 Not Given (Physician Discretion): insulin regular human10 units Sub-Q once; if blood cp glucose >300 17:54 Drug: Insulin Regular Human Sub-Q 10 units Sub-Q once {Co-Signature: ph (Roseline Hemphill ne1 RN).} Route: Sub-Q; Site: right lower abdomen; 18:58 Follow up: Response: No adverse reaction ph 18:24 CANCELLED (Physician Discretion): ns 0.9% 1000 ml IV at 1 bolus Per protocol; to be cp given as a bolus over 120 minutes 18:55 Drug: NS 0.9% IV 500 ml 500 ml IV at 1 bolus once; to be given as a bolus over 60 ph minutes Volume: 500 ml; Route: IV; Rate: 1 bolus; Site: left hand; 20:11 Follow up: Response: No adverse reaction; IV Status: Completed infusion; IV Intake: bm8 500ml 18:57 Drug: Insulin Regular Human Sub-Q 10 units Sub-Q once {Co-Signature: ll1 (Dallas Tran ph RN).} Route: Sub-Q; Site: left upper abdomen; 20:10 Follow up: Response: No adverse reaction bm8 Medication: 16:12 VIS not applicable for this client. ph Intake: 18:58 IV: 500ml; Total: 500ml. ph 20:11 IV: 500ml; Total: 1000ml. bm8 Outcome: 20:27 Discharge ordered by MD. cp 20:45 Discharged to home ambulatory, bm8 20:45 Condition: stable 20:45 Discharge instructions given to patient, family, Instructed on discharge instructions, follow up and referral plans. no drinking with medication, no driving heavy equipment, medication usage, Demonstrated understanding of instructions, follow-up care, medications, 20:56 Patient left the ED. bm8 Signatures: Dispatcher [employer] EDMS Kristan Gonzales RN RN Roseline Hemphill RN RN ph Mack Cox PA PA cp Lewis, Lynsay, RN RN ll1 Sheila Glass RN RN ne1 Damián Bose RN RN bm8 Zakiya Jha 3 Roseline Hemphill RN, ph, Lynsay RN ll Corrections: (The following items were deleted from the chart) 14:52 14:50 BP 146 / 79; Pulse 68bpm; Resp 17bpm; Pulse Ox 100%; 88.45 kg; Height 5 ft. 4 ll1 in.; BMI: 33.4; Pain 10/10, Adult; ll1 14:57 14:50 Chief complaint: Patient states: Blood sugar in the 600's with blood draw today. ll1 RLE pain for 2 days. ll1 18:58 18:57 NS 0.9% IV 500 ml 500 ml IV at 1 bolus in right antecubital ph ph 20:11 20:10 IV Status: Completed infusion; IV Intake: 500ml bm8 bm8
--- NOTE | 2024-05-23 20:28 | EDPHYS ---
Physician Documentation [facility] Name: Crys Munoz Age: 78 yrs Sex: Female : 1945 Arrival Date: 05/23/2024 Time: 14:36 Bed 5 Private MD: ED Physician Prakash Rodriguez HPI: 05/23 15:10 This 78 yrs old Black Female presents to ER via Wheelchair with complaints of High cp Blood Sugar, Leg Pain. 15:10 The patient or guardian reports hyperglycemia, that was potentially precipitated by not cp taking prescribed medication, Ozempic, due to cost. 15:10 Associated signs and symptoms: Pertinent positives: polyuria, right leg pain, blurry cp vision, dizziness, Pertinent negatives: chest pain, abdominal pain. 15:10 Patient c/o increasing right knee and right lower leg pain for past 2 days since recent cp fall. Patient reports she has been able to bear weight on right leg since fall. Denies right hip pain and denies right ankle pain. Historical: - Allergies: 14:49 PENICILLINS; ll1 - PMHx: 14:49 Asthma; diabetes mellitus; ll1 - PSHx: 14:49 partial hysterectomy; ll1 - Immunization history:: Adult Immunizations up to date. - Infectious Disease History:: Denies. - Social history:: Smoking status: Patient denies any tobacco usage or history of. ROS: 15:15 Constitutional: Negative for body aches, chills, fever, poor PO intake, cp 15:15 Cardiovascular: Negative for chest pain, edema, palpitations, cp 15:15 Respiratory: Negative for cough, shortness of breath, wheezing, 15:15 Abdomen/GI: Negative for abdominal pain, vomiting, diarrhea, constipation, Exam: 15:20 Constitutional: The patient appears in no acute distress, alert, awake, cp non-diaphoretic, non-toxic, well developed, well nourished, overweight 15:20 Head/Face: Normocephalic, atraumatic. cp 15:20 Eyes: Periorbital structures: appear normal, Conjunctiva: normal, no exudate, no injection, Sclera: no appreciated abnormality, Lids and lashes: appear normal, bilaterally, 15:20 ENT: External ear(s): are unremarkable, Nose: is normal, Mouth: Lips: moist, Oral mucosa: moist, Posterior pharynx: Airway: no evidence of obstruction, patent, 15:20 Chest/axilla: Inspection: normal, 15:20 Cardiovascular: Rate: normal, Rhythm: regular, Edema: is not appreciated, JVD: is not appreciated, 15:20 Respiratory: the patient does not display signs of respiratory distress, Respirations: normal, no use of accessory muscles, no retractions, labored breathing, is not present, Breath sounds: are clear throughout, no decreased breath sounds, no stridor, no wheezing, 15:20 Abdomen/GI: Inspection: abdomen appears normal, Palpation: abdomen is soft and non-tender, in all quadrants, 15:20 Back: pain, is absent, ROM is normal, 15:20 Musculoskeletal/extremity: Extremities: noted in the right lower leg: pain, tenderness, There is no evidence of deformity, swelling, Pulses: noted to be 2+ in the right dorsalis pedis artery, the right leg Sensation intact. Joints: the right knee displays painful range of motion, tenderness, 15:20 Skin: no rash present. Vital Signs: 14:50 BP 146 / 79; Pulse 68; Resp 17; Temp 99.3(O); Pulse Ox 100% ; Weight 88.45 kg; Height 5 ll1 ft. 4 in. ; Pain 10/10; 17:56 BP 132 / 81; Pulse 67; Resp 18; Pulse Ox 98% on R/A; ph 19:27 BP 160 / 70; Pulse 66; Resp 18; Temp 99; Pulse Ox 97% ; Pain 0/10; bm8 20:45 BP 158 / 71; Pulse 65; Resp 17; Temp 99; Pulse Ox 97% ; Pain 0/10; bm8 14:50 Body Mass Index 33.47 (88.45 kg, 162.56 cm) ll1 14:50 Pain Scale: Adult ll1 19:27 Pain Scale: Adult bm8 20:45 Pain Scale: Adult bm8 Rock Coma Score: 19:27 Eye Response: spontaneous(4). Motor Response: obeys commands(6). Verbal Response: bm8 oriented(5). Total: 15. MDM: 14:51 Medical Screening Exam initiated cp 20:26 Data reviewed: vital signs, nurses notes, lab test result(s), radiologic studies, cp ultrasound, and as a result, I will discharge patient. 20:26 Differential diagnosis: DKA, dvt, cellulitis, uti, fracture. Consideration of cp Admission/Observation Escalation of care including admission/observation considered. I considered the following discharge prescriptions or medication management in the emergency department Medications were administered in the Emergency Department. See MAR. Care significantly affected by the following chronic conditions: Diabetes, Obesity. Counseling: I had a detailed discussion with the patient and/or guardian regarding the historical points, exam findings, and any diagnostic results supporting the discharge/admit diagnosis, lab results, radiology results, the need for outpatient follow up, for definitive care, a family practitioner, to return to the emergency department if symptoms worsen or persist or if there are any questions or concerns that arise at home. Response to treatment: the patient's symptoms have mildly improved after treatment, and as a result, I will discharge patient. 05/23 15:06 Order name: BETA HYDROXYBUTYRATE; Complete Time: 16:48 05/23 15:06 Order name: CBC with Diff; Complete Time: 16:25 05/23 16:25 Interpretation: Normal except: RBC 3.43; HGB 10.0; HCT 28.9. 05/23 15:06 Order name: CMP; Complete Time: 16:48 05/23 18:51 Interpretation: Normal except: NA 133; GLUC 484; BUN 22; CRE 1.62; GFR 33; ALB 3.2; cp GLOB 3.7; A/G 0.9. 05/23 15:06 Order name: Lipase; Complete Time: 16:48 05/23 15:06 Order name: Urinalysis w/ reflexes; Complete Time: 16:25 05/23 16:25 Interpretation: Normal except: UGLUC 4+ (Over); UESTR 75. 05/23 16:22 Order name: Glucose, Ancillary Testing; Complete Time: 16:25 EDMS 05/23 16:26 Interpretation: Reviewed. 05/23 18:54 Order name: Glucose, Ancillary Testing; Complete Time: 19:43 EDMS 05/23 19:43 Interpretation: Reviewed. 05/23 20:20 Order name: Glucose, Ancillary Testing; Complete Time: 20:22 EDMS 05/23 15:06 Order name: US Extremity Venous Unilateral Ltd; Complete Time: 16:25 05/23 15:06 Order name: XRAY Tib Fib RIGHT; Complete Time: 16:25 05/23 15:06 Order name: IV Saline Lock; Complete Time: 16:10 cp 05/23 15:06 Order name: Labs collected and sent; Complete Time: 16:10 cp 05/23 15:06 Order name: Accucheck Blood Glucose; Complete Time: 16:10 cp 05/23 19:44 Order name: Accucheck Blood Glucose: recheck at 2000; Complete Time: 20:10 cp Administered Medications: 16:10 Drug: NS 0.9% IV 500 ml 500 ml IV at 1 bolus once; to be given as a bolus over 30 ph minutes Volume: 500 ml; Route: IV; Rate: 1 bolus; Site: left hand; 18:58 Follow up: Response: No adverse reaction; IV Status: Completed infusion; IV Intake: ph 500ml 16:10 Drug: Hydrocodone-Acetaminophen PO (7.5 mg-325 mg) 1 tabs PO once; RASS on ADMIN: ph Combtv4, Very Agttd3, Agttd2, Rstlss1, AlertClm0, Drwsy-1, Lt Sdtn-2, Mod Sdtn-3, Dp Sdtn-4, UnArsble-5 Route: PO; 18:58 Follow up: Response: No adverse reaction; Pain is decreased ph 16:26 Not Given (Physician Discretion): insulin regular human10 units Sub-Q once; if blood cp glucose >300 17:54 Drug: Insulin Regular Human Sub-Q 10 units Sub-Q once {Co-Signature: ph (Roseline Hemphill la1 RN).} Route: Sub-Q; Site: right lower abdomen; 18:58 Follow up: Response: No adverse reaction ph 18:24 CANCELLED (Physician Discretion): ns 0.9% 1000 ml IV at 1 bolus Per protocol; to be cp given as a bolus over 120 minutes 18:55 Drug: NS 0.9% IV 500 ml 500 ml IV at 1 bolus once; to be given as a bolus over 60 ph minutes Volume: 500 ml; Route: IV; Rate: 1 bolus; Site: left hand; 20:11 Follow up: Response: No adverse reaction; IV Status: Completed infusion; IV Intake: bm8 500ml 18:57 Drug: Insulin Regular Human Sub-Q 10 units Sub-Q once {Co-Signature: ll1 (Marc, Lynsay ph RN).} Route: Sub-Q; Site: left upper abdomen; 20:10 Follow up: Response: No adverse reaction bm8 Disposition: 05/24 09:05 Co-signature as Attending Physician, Prakash Rodriguez MD I reviewed the patient's care rn provided by the Advanced Practice Provider and agree with the diagnosis and treatment plan. 19:39 Chart complete. cp Disposition Summary: 05/23/24 20:27 Discharge Ordered Notes: Location: Home cp Problem: new cp Symptoms: have improved cp Condition: Stable cp Diagnosis - Pain in right leg cp - Diabetes mellitus due to underlying condition with hyperglycemia cp - Abnormal results of kidney function studies cp Followup: cp - With: Private Physician - When: 2 - 3 days - Reason: Recheck today's complaints Discharge Instructions: - Discharge Summary Sheet cp - Hyperglycemia cp - Musculoskeletal Pain cp - Daily Diabetes Mellitus Record cp - Blood Glucose Monitoring, Adult cp - Diabetes Mellitus and Nutrition, Adult cp Forms: - Medication Reconciliation Form cp - Antibiotic Education cp - Prescription Opioid Use cp - Patient Portal Instructions cp - Leadership Thank You Letter cp Prescriptions: - Celebrex 100 mg Oral capsule - take 1 capsule ORAL route every 12 hours As needed take with food; 30 capsule; cp Refills: 0, Product Selection Permitted - Metformin 500 mg Oral tablet - take 1 tablet ORAL route once daily for 7 days Then take 1 tablet with morning cp meals AND evening meals; 30 tablet; Refills: 0, Product Selection Permitted - Cyclobenzaprine 10 mg Oral tablet - take 1 tablet ORAL route every 8 hours As needed; 20 tablet; Refills: 0, cp Product Selection Permitted Signatures: Dispatcher [employer] EDPrakash Jansen MD MD rn Hall, Patricia, RN RN ph Mack Cox PA PA cp Dallas Tran RN RN ll1 Sheila Glass RN RN me1 Damián Bose RN bm8 Roseline Hemphill RN ph [place] Tran RN ll1 Corrections: (The following items were deleted from the chart) 05/23 18:24 18:24 NS 0.9% IV 1000 ml IV at 1 bolus Per protocol; to be given as a bolus over 120 cp minutes ordered. cp
[2024-05-23 21:21] VITALS: BP 160/70; TEMP 99; O2SAT 97
== END 2024-05-23 20:56 | disposition home or self-care (01) ==
LOC: ER 14:36
DX: E11.65 Type 2 diabetes mellitus with hyperglycemia (principal); R94.4 Abnormal results of kidney function studies
CPT/HCPCS: 96361; 85025; 81001; 36415; 82947 ×3; 83690; 80053; 82010; 73590; 93971; 96360; 96372; 99284; J1815 ×2; J7040 ×2